=== PATIENT | female | born 1950 | race Caucasian/White ===

== ENCOUNTER → 2016-12-18 15:17 | Day surgery (SDC) | payer MEDICARE, BC ==
--- NOTE | 2016-12-18 15:04 | HP ---
CC: Dr. Padma Garcia DATE OF ADMISSION: 12/18/2016. AGE: 66-year-old female. ADMITTING DIAGNOSES: 1. Calculus right ureter. 2. Right hydronephrosis. PLANNED PROCEDURE: Right ureteroscopy, possible laser and stent insertion. SURGEON: Dr. Ríos. HISTORY OF PRESENT ILLNESS: Padma Pope is a 66-year-old lady with a history of recurrent renal ca lculi who was evaluated on an urgent basis for increasing right- sided abdominal pain and flank pain . She was noted to have a fairly large mm obstructing calculus in the distal right ureter wit h right hydronephrosis and evidence of a complete obstruction. She is now being brought in for righ t ureteroscopy, possible laser and stent insertion. PAST MEDICAL HISTORY: Significant for: 1. Memory impairment. 2. Hypertension. 3. Gastroesophageal reflux. PAST SURGICAL HISTORY: Significant for ureteroscopy for ureteral calculi, hysterectomy, right total knee replacement, and cholecystectomy. MEDICATIONS ON ADMISSION: 1. Xyzal 5 mg daily. 2. Premarin 0.3 mg daily. 3. Aspirin 81 mg daily. 4. Aricept 5 mg daily. 5. Zocor 10 mg daily. 6. Meloxicam prn. ALLERGIES AND INTOLERANCES: MORPHINE. SMOKING HISTORY: She is a nonsmoker. PHYSICAL EXAMINATION GENERAL: Pleasant, uncomfortable-appearing lady. VITAL SIGNS: Blood pressure 148/98, pulse 104 per minute and regular, temperature 97.9, oxygen satu ration 97 percent. CARDIOVASCULAR: Regular rate and rhythm, S1, S2. LUNGS: Clear bilaterally. ABDOMEN: Soft with right flank tenderness. IMPRESSION: Eeakz-wezhn-hcof-old lady with a large obstructing calculus in the right distal ureter . PLAN: Planned procedure is right ureteroscopy, possible laser and stent insertion. [id number]/[facility] #: [id number]
[~2016-12-18 15:17] MED LIST: Buffered Lidocaine 1% SYRIN* 3 ML/SYR SYRINGE INTRADERM ONE; Chloroprocaine 2%* 20 ML VIAL ONE; Dexamethasone IV* 4 MG/ML 1 ML (4 MG) IV SLOW PU ONE; Dexamethasone IV* 4 MG/ML 1 ML (4 MG) ONE; DiMENhydriNATE IV* 50 MG/ML VIAL IV PUSH PRN; Famotidine IV* 10 MG/ML 2 ML (20 mg) IV ONE; Famotidine IV* 10 MG/ML 2 ML (20 mg) ONE; Glycopyrrolate IV* 0.2 MG/ML 1 ML VIAL ONE; Iohexol 180 (CONTRAST) 10 ML SDV IV ONE; Midazolam* 1 MG/ML 5 ML VIAL (5 MG) ONE; Ondansetron INJ* 2 MG/ML VIAL IV PRN; Ondansetron INJ* 2 MG/ML VIAL ONE; cefTRIAXone(*) 2 GM ADDV.VIAL IVPB ONE; fentaNYL* 50 MCG/ML 2 ML VIAL (100 MCG VIAL) IV PRN; fentaNYL* 50 MCG/ML 2 ML VIAL (100 MCG VIAL) ONE; oxyCODONE/Acetamin 5/325 MG* TAB PO PRN
[2016-12-18 20:05] VITALS: BP 133/72
--- NOTE | 2016-12-18 20:09 | RAD ---
INDICATION: Right renal calculus, stent placement. COMPARISON: Comparison is made with a prior KUB series of the same date and a CT of the abdomen and pelvis from June 21, 2016. TECHNIQUE: 8 seconds of intermittent fluoroscopic guidance were provided and 8 spot films of the abdomen were centered on the right side. FINDINGS: There is partial opacification of the right renal collecting system. There is dilatation of the right ureter, renal pelvis and calyces consistent with hydronephrosis. Subsequently there is placement of a double-J stent catheter on the right side which demonstrates normal course. IMPRESSION: INTRAOPERATIVE CONTROL FILMS. CPT II Codes: 6045F
--- NOTE | 2016-12-19 06:44 | OP ---
DATE OF OPERATION: 12/18/16 - [facility] DATE OF : [birth year] - AGE: 66 years, Female. SURGEON: Bautista Ríos MD ANESTHESIOLOGIST: Dr. Mejia. ANESTHESIA: Spinal. PRE-OP DIAGNOSES: 1. Right hydronephrosis and hydroureter. 2. Obstructing calculus, right distal ureter. POST-OP DIAGNOSES: 1. Right hydronephrosis and hydroureter. 2. Obstructing calculus, right distal ureter. OPERATIVE PROCEDURE: Cystoscopy, right retrograde pyelogram, right ureteroscopy , laser lithotripsy of right ureteral calculus, and removal of calculus fragments and right stent insertion. COMPLICATIONS: None. STENTS USED: 7-Niuean stent, right ureter. OPERATIVE FINDINGS: Right hydronephrosis and hydroureter with a fairly large 11 to 12 mm calculus impacted in right distal ureter. POSTOPERATIVE CONDITION: Stable. INDICATIONS: Padma Pope is a 66-year-old lady who was evaluated and noted to have an obstructing right ureteral calculus. PROCEDURE PERFORMED: After induction of spinal anesthesia, the patient was placed in dorsal lithotomy position. Sequential compression devices were in place and functioning. Initial cystoscopy revealed a normal-appearing bladder with clear efflux noted from the left orifice. There was no efflux noted from the right suggesting a complete obstruction. Right retrograde pyelogram revealed right hydronephrosis and a dilated tortuous proximal and mid right ureter. In the distal right ureter, a fairly large calculus was noted to be impacted. Using a 550 micron holmium laser, this was successfully fragmented into multiple fragments, all of which were retrieved. A 7-Niuean stent was introduced and positioned under fluoroscopy with good proximal and distal positioning obtained. The patient tolerated the procedure satisfactorily and was transferred back to recovery area in stable condition. CC: Padma Garcia MD* [id number]/[facility] #: [id number] MTDD
== END | disposition home or self-care (01) ==
LOC: OR 15:17
PROVIDERS: ATTEND Urology
DX: N13.2 Hydronephrosis with renal and ureteral calculous obstruction (principal); I10 Essential (primary) hypertension
CPT/HCPCS: 74420; 82365; 88300; C1876; J0696; J1100; J2250; J2400; J2405; J3010

== ENCOUNTER 2018-08-07 14:05 | Observation (INO) | payer MEDICARE, BC ==
[2018-08-07] MEDS ORDERED: NS 0.9% 1000 ML* 2,000 ML IV ONE (14:28)
--- NOTE | 2018-08-07 14:29 | ED ---
Complex/Multi-Sys Presentation - HPI Summary HPI Summary: Level 5 caveat: Unable to obtain complete HPI due to Alzheimers The pt is a 68 y/o female accompanied by her caregiver [facility] c/o weakness since 1 week ago worsened today. She saw her PCP 1 day ago and got diagnosed with a UTI, dehydration and suspected sepsis. She notes cough while her caregiver reports loss of appetite, N/V/D, increased sleeping, urinary incontinence, speech changes and bilateral pedal edema. 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 Hx From Patient Unobtainable Due To: Other - Alzheimer's Onset/Duration: Lasting Weeks - 1 week, Worse Since - Today Timing: Constant Associated Signs And Symptoms: Positive: Weakness, Cough, Edema - Pedal, Nausea , Vomiting, Diarrhea, Decreased Oral Intake, Other - Incrased sleeping, Urinary incontinence - Allergies/Home Medications Allergies/Adverse Reactions: Allergies Allergy/AdvReac Type Severity Reaction Status Date / Time morphine Allergy Nausea And Verified 08/07/18 14:26 Vomiting Home Medications: Home Medications Losartan Potassium 25 mg PO DAILY 08/07/18 [History Confirmed 08/07/18] cephALEXin [Keflex] 500 mg PO BID 08/07/18 [History Confirmed 08/07/18] PMH/Surg Hx/FS Hx/Imm Hx Previously Healthy: No - Level 5 caveat: Unable to obtain complete Mhx due to Alzheimers Endocrine/Hematology History: Denies: Hx Diabetes Cardiovascular History: Reports: Hx Hypertension - ON MEDS, Other Cardiovascular Problems/Disorders - CAD W/MEDS Denies: Hx Coronary Artery Disease, Hx Pacemaker/ICD Respiratory History: Denies: Hx Asthma History: Reports: Hx Kidney Stones - BILAT. Denies: Hx Renal Disease Musculoskeletal History: Reports: Hx Arthritis - GENERALIZED Denies: Hx Osteoporosis Sensory History: Denies: Hx Contacts or Glasses, Hx Hearing Aid Opthamlomology History: Denies: Hx Contacts or Glasses Neurological History: Reports: Other Neuro Impairments/Disorders - Alzheimer's , memory problems Psychiatric History: Denies: Hx Panic Disorder - Cancer History Cancer Type, Location and Year: None reported Hx Chemotherapy: No Hx Radiation Therapy: No - Surgical History Surgery Procedure, Year, and Place: HYSTERECTOMY. RIGHT KNEE REPLACEMENT. KNEE MENISCUS REPAIR 20 YRS. URETER STENT PLACED A FEW TIMES IN THE PAST Hx Anesthesia Reactions: No Infectious Disease History: No Infectious Disease History: Denies: Traveled Outside the [place] in Last 30 Days - Family History Known Family History: Positive: Cardiac Disease - Social History Occupation: Retired Lives: With Family Alcohol Use: None Substance Use Type: Reports: None Hx Tobacco Use: No Smoking Status (MU): Never Smoked Tobacco Review of Systems - ROS Summary Review of Systems Summary: Level 5 caveat: Unable to obtain complete ROS due to Alzheimers Constitutional: Other - Positive: Increased sleeping, loss of appetite Positive: Cough Positive: Vomiting, Diarrhea, Nausea Positive: incontinence - Urinary Positive: Edema - Bilateral pedal Positive: Weakness All Other Systems Reviewed And Are Negative: No Physical Exam - Summary Physical Exam Summary: Level 5 caveat: Unable to obtain complete PE due to Alzheimer's Appearance: The patient is well-nourished in no acute distress and in no acute pain. Skin: The skin is warm and dry and skin color reflects adequate perfusion. HEENT: The head is normocephalic and atraumatic. The pupils are equal and reactive. The conjunctivae are clear and without drainage. Nares are patent and without drainage. Mouth reveals moist mucous membranes and the throat is without erythema and exudate. The external ears are intact. The ear canals are patent and without drainage. The tympanic membranes are intact. Neck: The neck is supple with full range of motion and non-tender. There are no carotid bruits. There is no neck vein distension. Respiratory: Chest is non-tender. Lungs are clear to auscultation and breath sounds are symmetrical and equal. Cardiovascular: Heart is irregularly irregular. There is no murmur or rub auscultated. There is bilateral pedal edema. Pulses are symmetrical and equal. Abdomen: The abdomen is soft and non-tender. There are normal bowel sounds heard in all four quadrants and there is no organomegaly palpated. Musculoskeletal: There is no back tenderness noted. Extremities are non-tender with full range of motion. There is good capillary refill. There is bilateral pedal edema. No calf tenderness elicited. Neurological: Patient is alert and oriented to person, place and time. The patient has symmetrical motor strength in all four extremities. Cranial nerves are grossly intact. Deep tendon reflexes are symmetrical and equal in all four extremities. Psychiatric: The patient has an appropriate affect and does not exhibit any anxiety or depression. Triage Information Reviewed: Yes Vital Signs On Initial Exam: Initial Vitals Temp Pulse Resp BP Pulse Ox 97.8 F 77 18 134/79 98 08/07/18 14:10 08/07/18 14:10 08/07/18 14:10 08/07/18 14:10 08/07/18 14:10 Vital Signs Reviewed: Yes Completion Of Physical Exam Limited Due To: Other - Alzheimer's Diagnostics - Vital Signs Vital Signs Temp Pulse Resp BP Pulse Ox 08/07/18 14:19 75 134/79 99 08/07/18 14:18 46 97 08/07/18 14:10 97.8 F 77 18 134/79 98 - Laboratory Result Diagrams: 08/07/18 14:54 08/07/18 14:54 Lab Statement: Any lab studies that have been ordered have been reviewed, and results considered in the medical decision making process. - Radiology CXR Radiology Interpretation Completed By: Radiologist - IMPRESSION: Density seen in the bilateral lung bases could be due to atelectasis or infiltrate or simply be the consequence of a poor inspiratory effort on a portable chest x-ray. The ED physician reviewed this radiology report. - CT Abd/Pel CT CT Interpretation Completed By: Radiologist - IMPRESSION: 1. Mildly obstructing 1.1 cm calculus proximal third right ureter. 2. Bilateral nonobstructing renal calculi. 3. Hepatic steatosis and hepatomegaly. Non- associated splenomegaly. 4. Anatomically dilated appendix. The ED physician reviewed this radiology report. Complex Multi-Symp Course/Dx Course Of Treatment: Ms. Pope was brought in by ambulance at the behest of her because she is weak and not taking good care of herself. She has been less talkative today. She's been on a day of Keflex for UTI found at the office of Dr. Garcia yesterday. Labs were drawn at that time and returned today showing acute renal failure with a very high BUN and creatinine. She was nontoxic in appearance on arrival here and vital signs were stable. IV fluid was ordered for her and labs were obtained and sent. She had no leukocytosis and her BUN and creatinine were actually quite a bit improved from yesterday. I spoke with Dr. Mantilla who recommended giving of the fluids in repeating her UA which were still waiting for and see how she does. Her UA did show a continued infection and although she is already been on Keflex for one day she should be improving. Her did not want to take her home as she is too weak for him to take care of therefore Dr. Roldan was contacted and requested a CT scan. CT scan showed an obstructing proximal right ureteral stone of 1.[address] Roldan was informed and is contacting Dr. Barker. She had been given IV Cipro earlier. - Diagnoses Provider Diagnoses: Severe dehydration, UTI (urinary tract infection), Weakness - Physician Notifications Discussed Care Of Patient With: Lynne Roldan - Hospitalist Time Discussed With Above Provider: 17:35 Instructed by Provider To: Admit As Inpatient Discharge - Sign-Out/Discharge Documenting (check all that apply): Patient Departure - Admit - Discharge Plan Condition: Stable Disposition: ADMITTED TO [facility] - Billing Disposition and Condition Condition: STABLE Disposition: Admitted to [facility] - Attestation Statements Document Initiated by Scribe: Yes Documenting Scribe: Ena Hamilton Provider For Whom Catalino is Documenting (Include Credential): Dr. Brian Christie MD Scribe Attestation: Ena Heath , scribed for Dr. Brian Christie MD on 08/07/18 at 2145. Scribe Documentation Reviewed: Yes Provider Attestation: The documentation as recorded by the Ena chandra accurately reflects the service I personally performed and the decisions made by me, Dr. Brian Christie MD
[2018-08-07 15:26] LABS: ABS Basophils 0 10^3/ul (0-0.2); ABS Eosinophils 0.1 10^3/ul (0-0.6); ABS Lymphocytes 0.5 10^3/ul (1.0-4.8); ABS Monocytes 0.8 10^3/ul (0-0.8); ABS Neutrophils 4.6 10^3/ul (1.5-7.7); ABS Nucleated RBC 0 10^3/ul; Eosinophil % 2.3 % (0-6); Hematocrit 39 % (35-47); Lymphocyte % 8.1 % (25-47); Mean Corpuscular HGB Conc 34 g/dl (31-36); Mean Corpuscular Hemoglobin 29 pg (27-31); Mean Corpuscular Volume 87 fL (80-97); Mean Platelet Volume 8.8 fL (7.4-10.4); Nucleated Red Blood Cells % 0.1; Platelet Count 117 10^3/ul (150-450); Red Blood Count 4.45 10^6/ul (4.00-5.40); Red Cell Distribution Width 14 % (10.5-15); White Blood Count 6.1 10^3/ul (3.5-10.8)
--- NOTE | 2018-08-07 15:30 | RAD ---
INDICATION: Weakness COMPARISON: Most recent comparison chest x-rays dated January 03, 2016 TECHNIQUE: Single AP portable view of the chest was obtained. FINDINGS: Image quality is compromised due to the relative inferiority of a portable chest x-ray. The heart and mediastinum exhibit normal size and contour. There is faint density seen at the bilateral lung bases which potentially could be due to poor respiratory effort. More superiorly the lungs are well-aerated. Visualized bones are normal for the patient's age. IMPRESSION: Density seen in the bilateral lung bases could be due to atelectasis or infiltrate or simply be the consequence of a poor inspiratory effort on a portable chest x-ray.
[2018-08-07 15:35] LABS: INR 0.97 (0.77-1.02)
[2018-08-07 15:40] LABS: EGFR Non-African American 21.7 (>60)
[2018-08-07 17:53] LABS: Urine Appearance Cloudy; Urine Blood 2+ (Negative); Urine Color Yellow; Urine Ketones Negative (Negative); Urine Protein 1+(30 mg/dL) (Negative); Urine Red Blood Cell 3+(>10/hpf) (Absent); Urine Specific Gravity 1.013 (1.010-1.030); Urine Urobilinogen Negative (Negative); Urine White Blood Cell 3+(>20/hpf) (Absent)
[2018-08-07] MEDS ORDERED: Ciprofloxacin 400MG IVPREMIX(* 400 MG/200 ML BAG IVPB ONE (19:39)
[2018-08-07] MEDS ORDERED: Acetaminophen TAB* 325 MG PO PRN (20:09)
[2018-08-07] MEDS ORDERED: NS 0.9% 1000 ML* 1,000 ML IV SCH (20:15)
[2018-08-07] MEDS ORDERED: NAMENDA PO SCH (21:00)
--- NOTE | 2018-08-07 21:16 | RAD ---
EXAM: CT Abdomen and Pelvis Without Intravenous Contrast EXAM DATE/TIME: 08/07/2018 8:39 PM CLINICAL HISTORY: 68 years old, female; Signs and symptoms; Other: Obstruction TECHNIQUE: Axial computed tomography images of the abdomen and pelvis without intravenous contrast. All CT scans at this facility use at least one of these dose optimization techniques: automated exposure control; mA and/or kV adjustment per patient size (includes targeted exams where dose is matched to clinical indication); or iterative reconstruction. Coronal and sagittal reformatted images were created and reviewed. COMPARISON: A/P WO CT ABD/PEL W/O 06/21/2016 6:44 PM FINDINGS: Lower thorax: No acute findings. ABDOMEN: Liver: Diffuse low-attenuation of the liver parenchyma with sparing along the gallbladder fossa. Associated enlargement measuring 22 cm. Gallbladder and bile ducts: Surgically absent gallbladder. Pancreas: Normal. No ductal dilation. Spleen: Enlarged spleen measuring 522 cc. Adrenals: Normal. No mass. Kidneys and ureters: Enlargement of the right kidney with mild pelvicaliureterectasis which terminates at a 1.1 cm calculus proximal third right ureter (series 601, image 52). Additional bilateral nonobstructing renal calculi including on the left within the midpole measuring 0.6 and 0.5 cm and on the right within the lower pole measuring 0.3 cm. Mild right perinephric and proximal periureteral stranding. No left pelvocaliectasis. Stomach and bowel: Incompletely distended grossly normal stomach. Normal caliber small bowel. No colonic masses or segmental wall thickening. Appendix: Dilated appendix measuring up to 1.2 cm with no wall thickening or appendiceal stranding. Appendix is similar in caliber compared to prior study. PELVIS: Bladder: Thin-walled bladder with no focal nodularity, perivesicular stranding, or calcifications. Reproductive: Uterus and ovaries are normal. ABDOMEN and PELVIS: Intraperitoneal space: Normal. No free air. No significant fluid collection. Bones/joints: The spine demonstrates mild degenerative changes at multiple levels. Mild bilateral hip primary osteoarthritis. No fractures. No suspicious bone lesions. Soft tissues: Small fat-containing indirect bilateral inguinal hernias. No stranding. Vasculature: There is mild atherosclerotic calcification of the coronary arteries. The aorta demonstrates severe atherosclerotic calcification and ectasia. Lymph nodes: Normal. No enlarged lymph nodes. IMPRESSION: 1. Mildly obstructing 1.1 cm calculus proximal third right ureter. 2. Bilateral nonobstructing renal calculi. 3. Hepatic steatosis and hepatomegaly. Non-associated splenomegaly. 4. Anatomically dilated appendix. To contact [facility] with a general question: Operations Center - [phone] For direct physician to physician contact: Physician Hotline - [phone] [facility] ([facility] Facility ID #[id number])
[2018-08-07] MEDS ORDERED: cefTRIAXone(*) 1 GM in NS 0.9% 50 ML* 50 ML IVPB SCH (21:30)
[2018-08-07] MEDS ORDERED: cefTRIAXone(*) 2 GM in NS 0.9% 100 ML* 100 ML IVPB ONE (21:51)
[2018-08-07] MEDS ORDERED: Gentamicin ADULT (*) 160 MG in NS 0.9% 100 ML* 100 ML IVPB ONE (22:00)
[2018-08-07] MEDS: Heparin VIAL(*) 5000 UNITS/ML VIAL (FIVE THOUSAND) SUBCUT SCH (22:06)
--- NOTE | 2018-08-07 23:16 | HP ---
ADDENDUM NOW INCLUDED ON THIS REPORT CC: Dr. Padma Garcia.* HISTORY AND PHYSICAL: DATE OF ADMISSION: 08/07/18 PRIMARY CARE PROVIDER: Dr. Padma Garcia. ATTENDING PHYSICIAN WHILE IN THE HOSPITAL: Lynne Roldan MD * (dictated by Jayshree Casanova NP). CHIEF COMPLAINT: 1. Increased confusion. 2. UTI. HISTORY OF PRESENT ILLNESS: Ms. Pope is a 68-year-old female who has past medical history significant for Alzheimer's disease, hypertension, hyperlipidemia, history of kidney stones who presented to the emergency room today with her for complaints of increased confusion and fatigue. The reports that the patient was seen at her primary care doctor's office yesterday, had routine blood work done, which they found her to have an elevated BUN and creatinine. On 08/06/18 her BUN and creatinine were 98 and 3.5 , today on the day of admission her BUN is 74 and creatinine is 2.23. She was started on Keflex antibiotics for urinary tract infection at her doctor's office. The does report that she has had a low grade fever and intermittent chills. The patient denies any abdominal pain. She denies any chest pain or shortness of breath. Denies any cough, congestion, or hemoptysis. She does report some diarrhea. The does not report any gross hematuria. He does report increased urinary frequency increased confusion and incontinence. There has been no focal weakness, no trouble swallowing, no arthralgias or myalgias. No rashes or lesions. Given her increased confusion and UTI, we were asked to see and evaluate her for admission. While in the emergency room, the patient had routine lab work drawn. Her BUN and creatinine today on the day of admission are 7.4, and 2.23, which markedly has improved. Her C-reactive protein yesterday was 201.72, today it is 114.81. She did receive IV normal saline during her time in the emergency urgency room. The does report that her mentation has improved since receiving the IV fluids. PAST MEDICAL HISTORY: Significant for: 1. Alzheimer's x15 years. 2. Kidney stones. 3. Hypertension. 4. Hyperlipidemia. PAST SURGICAL HISTORY: 1. Knee replacement. 2. Cholecystectomy. 3. Hysterectomy. ALLERGIES: She has allergy to morphine. FAMILY HISTORY: No reported history of coronary artery disease, diabetes or cancer within the family. SOCIAL HISTORY: reports no tobacco, alcohol, or illicit drug use. She is . Surrogate decision maker in the event she is unable to make her own decisions is her , Renetta Pope, his phone number is [phone]. She has a full code. REVIEW OF SYSTEMS: There has been no documented fever. No weight loss. She denies any chest pain. No cough hemoptysis or shortness of breath. Denies any nausea, vomiting, does report diarrhea. Denies any abdominal pain. Denies any gross hematuria. Does report increased urinary frequency, confusion, and incontinence. Denies any focal weakness or sensory loss. Denies any visual complaints. Denies any dysphagia, arthralgias or myalgias. Denies any rashes or lesions. Denies any psychosis for anxiety. There has been report of increased confusion and increased fatigue. PHYSICAL EXAMINATION GENERAL: At this time, Ms. Pope is alert, resting on the stretcher in the emergency room. Her face is flushed. She is in no acute distress. VITAL SIGNS: Temperature was 97.8, heart rate was 83, respirations 24, O2 saturation 96%, blood pressure 138/73. HEENT: Pupils are equal and reactive to light. EOMs are intact. Sclerae anicteric, not pale. Oral mucosa appears to be moist. NECK: Supple. LUNGS: Clear to auscultation bilaterally. No wheezes, rales or rhonchi. HEART: Sounds S1 and S2. Regular rate and rhythm. No murmurs, rubs or gallops. ABDOMEN: Soft, flat and nontender. Bowel sounds are present x4. She does have positive right CVA tenderness with palpation. EXTREMITIES: Pulses are +2 bilaterally. She is able to move all 4 extremities with 5/5 strength. NEUROLOGIC: She is awake. She is confused to place and time. She is oriented to name. Her speech is clear. There is no gross focal deficits noted. SKIN: Intact. DIAGNOSTIC STUDIES/LAB DATA: WBCs were 6.1, RBCs 4.45, hemoglobin was 13.0, hematocrit was 39, platelet count was 117,000. INR was 0.97. Chemistry: Sodium 135, potassium 3.5, chloride 98, carbon dioxide was 28, anion gap was 9, BUN was 74, creatinine 2.23, glucose 103, lactic acid was 0.9. ASTs were 41, C- reactive 114.81. Urine color is yellow, cloudy, pH was 5, specific gravity 1.013, urine protein was 1+, urine ketones were negative. Urine blood was 2+. Urine nitrites were negative. Bilirubin was negative. Urobilinogen was negative. Urine leukocyte esterase was 3+, wbc's 3+, rbc's were 3+. Urine squamous epithelial cells were present. Urine bacteria 1+, granular casts are present. Urine yeast is present. Urine glucose was negative. Chest x-ray: Densities were seen in bilateral lung bases, could be due to atelectasis or infiltrate or simply be the consequence of poor inspiration effort on the portable chest. CT of the abdomen is currently pending. ASSESSMENT AND PLAN: Ms. Pope is a 68-year-old female who presented to the emergency room today with increased confusion, fatigue, and urinary tract infection symptoms. We were asked to see and evaluate her for admission due to weakness and elevated BUN and creatinine. She will be admitted under observation for: 1. Urinary tract infection. The patient was seen and evaluated by her primary care provider yesterday. She was diagnosed with urinary tract infection and started on Keflex. Initially, her blood work yesterday BUN and creatinine were 98 and 3.50, today she has 74 and 2.23. Her C-reactive protein was also elevated at 201 and is now down to 114. I will place her on ceftriaxone and CT of the abdomen pelvis is currently pending, as she does have a history of kidney stones to rule out obstructing stone. We will repeat a CBC and BMP in the a.m. I will give her gentle hydration of normal saline at 75 cc per hour x1 L. Her urine culture from yesterday is positive for E. coli greater than 100 ,000. 2. Acute kidney injury. I suspect this could be related to her urinary tract infection. This also could be related to obstructive kidney stone. She has a CT of the abdomen and pelvis that is currently pending. At this time, if she does have obstructing stones, we will consult Urology. We will avoid nephrotoxic medications during this hospitalization as her BUN and creatinine are significantly elevated. 3. Hypertension. She will continue on losartan as previously prescribed. 4. Alzheimer's dementia. She will continue on Namenda and donepezil as previously prescribed. 5. Hyperlipidemia. She will continue on simvastatin as previously prescribed. 6. DVT prophylaxis. I will place her on heparin subcu. 7. Fluids, electrolytes, and nutrition. She can have heart healthy, caffeine okay diet. 8. Code status. She is a full code. TIME SPENT: Time spent on this admission was approximately 60 minutes, greater than half the time was spent [id number] with the patient obtaining my history and physical, the other half time was spent going over my plan of care and implementing my plan of care. I have discussed this with my attending, Dr. Lynne Roldan she is in agreement with my plan. ADDENDUM: The patient had a CT of the abdomen and pelvis, found a 1.1 cm right renal calculi obstructing stone. I did speak to Dr. Barker, who has recommended the patient have 2 g of ceftriaxone IV and gentamicin 160 mg IV, continue with IV hydration. The patient should be n.p.o. after midnight. He will see the patient in the morning and the patient will have a stent placement in the a.m. If the patient develops a fever or hypotension overnight, Dr. Barker is to be called immediately. JAYSHREE CASANOVA, DAYNA [id number]/CPS #: [id number]/CPS #: [id number] AMY
--- NOTE | 2018-08-08 00:30 | HP ---
HISTORY AND PHYSICAL: ADDENDUM: The patient had a CT of the abdomen and pelvis, found a 1.1 cm right renal calculi obstructing stone. I did speak to Dr. Barker, who has recommended the patient have 2 g of ceftriaxone IV and gentamicin 160 mg IV, continue with IV hydration. The patient should be n.p.o. after midnight. He will see the patient in the morning and the patient will have a stent placement in the a.m. If the patient develops a fever or hypotension overnight, Dr. Barker is to be called immediately. RE REIS, HONEY BLENDER [id number]/[facility] #: [id number] AMY
[2018-08-08] MEDS: Heparin VIAL(*) 5000 UNITS/ML VIAL (FIVE THOUSAND) SUBCUT SCH ×3 (05:34→22:53)
[2018-08-08 06:55] LABS: ABS Basophils 0 10^3/ul (0-0.2); ABS Eosinophils 0.1 10^3/ul (0-0.6); ABS Lymphocytes 0.7 10^3/ul (1.0-4.8); ABS Monocytes 0.9 10^3/ul (0-0.8); ABS Neutrophils 4.2 10^3/ul (1.5-7.7); ABS Nucleated RBC 0 10^3/ul; Eosinophil % 1.2 % (0-6); Hematocrit 34 % (35-47); Hemoglobin 11.3 g/dl (12.0-16.0); Lymphocyte % 11.2 % (25-47); Mean Corpuscular HGB Conc 34 g/dl (31-36); Mean Corpuscular Hemoglobin 29 pg (27-31); Mean Corpuscular Volume 86 fL (80-97); Mean Platelet Volume 8.3 fL (7.4-10.4); Nucleated Red Blood Cells % 0; Platelet Count 104 10^3/ul (150-450); Red Cell Distribution Width 14 % (10.5-15); White Blood Count 5.8 10^3/ul (3.5-10.8)
[2018-08-08 07:13] LABS: EGFR Non-African American 32.6 (>60)
[2018-08-08] MEDS ORDERED: Iohexol 180 (CONTRAST) 10 ML SDV IV ONE (08:03)
[2018-08-08] MEDS ORDERED: Naloxone* 0.4 MG/ML 1 ML VIAL IV PRN (08:09)
[2018-08-08] MEDS ORDERED: fentaNYL* 50 MCG/ML 2 ML VIAL (100 MCG VIAL) IV PRN (08:09)
[2018-08-08] MEDS ORDERED: fentaNYL* 50 MCG/ML 2 ML VIAL (100 MCG VIAL) ONE (08:35)
[2018-08-08] MEDS ORDERED: Lidocaine 2% PF * 5 ML VIAL ONE (08:35)
[2018-08-08] MEDS ORDERED: Propofol* 10 MG/ML 20 ML BTL IV PUSH ONE (08:35)
--- NOTE | 2018-08-08 10:30 | RAD ---
CPT II Codes: G9500 INDICATION: Right-sided renal calculus TECHNIQUE: Intraoperative fluoroscopy was provided during retrograde nephrostogram and right ureteral stent insertion. FINDINGS: 6 spot films depict a retrograde nephrostogram demonstrating moderate hydronephrosis with anatomic placement of a right ureteral stent. Fluoroscopy time: 30 seconds IMPRESSION: As above.
[2018-08-08] MEDS: Losartan TAB* 25 MG PO SCH (10:33)
[2018-08-08] MEDS: cefTRIAXone(*) 1 GM in NS 0.9% 50 ML* 50 ML IVPB SCH ×2 (10:43→22:55)
[2018-08-08] MEDS: NS 0.9% 1000 ML* 1,000 ML IV SCH ×2 (14:25→22:53)
--- NOTE | 2018-08-08 15:45 | PN ---
Subjective Date of Service: 08/08/18 Interval History: Ms. Pope is feeling better today. She denies any pain. Her family is at bedside and reports she looks much better than yesterday. She denies any urinary symptoms such as dysuria, hesitancy, or increased frequency. Has urinated without difficulty since stent placement this morning. She denies CP, SOB, N/V/D, dizziness. Has been up ambulating in the room. Family History: Unchanged from Admission Social History: Unchanged from Admission Past Medical History: Unchanged from Admission Objective Active Medications: Acetaminophen (Tylenol Tab*) 650 mg PO Q4H PRN Amlodipine Besylate (Norvasc Tab*) 5 mg PO QPM [facility] Donepezil HCl (Aricept Tab*) 10 mg PO QPM [facility] Heparin Sodium (Porcine) (Heparin Vial(*)) 5,000 units SUBCUT Q8HR [facility] Ceftriaxone Sodium 1 gm/ (Sodium Chloride) 50 mls @ 200 mls/hr IVPB Q12H [facility] Sodium Chloride (Ns 0.9% 1000 Ml*) 1,000 mls @ 125 mls/hr IV PER RATE [facility] Losartan Potassium (Cozaar Tab*) 25 mg PO DAILY [facility] Simvastatin (Zocor(Nf)) 10 mg PO QPM [facility] Vital Signs - 8 hr 08/08/18 08/08/18 08/08/18 07:52 08:00 09:16 Temperature 98.9 F 97.3 F Pulse Rate 83 71 Respiratory 19 20 Rate Blood Pressure 140/67 (mmHg) O2 Sat by Pulse 95 95 96 Oximetry 08/08/18 08/08/18 08/08/18 09:17 09:20 09:25 Temperature Pulse Rate 70 73 74 Respiratory 18 18 Rate Blood Pressure 115/64 129/76 122/79 (mmHg) O2 Sat by Pulse 98 97 98 Oximetry 08/08/18 08/08/18 09:30 09:45 Temperature Pulse Rate 68 69 Respiratory 18 Rate Blood Pressure 130/77 152/88 (mmHg) O2 Sat by Pulse 93 99 Oximetry Oxygen Devices in Use Now: None Appearance: Elderly woman sitting in chair in NAD Eyes: No Scleral Icterus Ears/Nose/Mouth/Throat: Mucous Membranes Moist Neck: NL Appearance and Movements; NL JVP Respiratory: Symmetrical Chest Expansion and Respiratory Effort, Clear to Auscultation Cardiovascular: NL Sounds; No Murmurs; No JVD, RRR Abdominal: NL Sounds; No Tenderness; No Distention Extremities: No Clubbing, Cyanosis, - - +1 pitting edema to BLE Skin: No Rash or Ulcers Neurological: - - Oriented to self only Lines/Tubes/Other Access: Clean, Dry and Intact Peripheral IV Nutrition: Taking PO's Result Diagrams: 08/08/18 06:31 08/08/18 06:31 Assess/Plan/Problems-Billing Assessment: Ms. Pope is a 68yo with PMH of Alzheimer's, HTN, and HLD who presented to the ER on 08/07/18 with c/o increased confusion per her and was found to have a UTI with EDUARDO. - Patient Problems (1) Pyelonephritis due to Escherichia coli Current Visit: Yes Status: Acute Priority: High Code(s): N12 - TUBULO- INTERSTITIAL NEPHRITIS, NOT SPCF ACUTE OR CHRONIC; B96.20 - UNSP ESCHERICHIA COLI THE CAUSE OF DISEASES CLASSD [facility] SNOMED Code(s): 58420700 Comment: - Right sided CVA tenderness on exam - CT shows mild right perinephric and proximal periureteral stranding - Urine culture from 08/06/18 shows e. coli; pansensitive except to tetracycline - Continue ceftriaxone (2) Calculus of right kidney Current Visit: Yes Status: Acute Priority: High Code(s): N20.0 - CALCULUS OF KIDNEY SNOMED Code(s): 69999790 Comment: - CT shows mildly obstructing 1.1cm calculus, right side - S/p stent placement this morning by Dr. Barker (3) Bacteremia due to Escherichia coli Current Visit: Yes Status: Acute Priority: High Code(s): R78.81 - BACTEREMIA SNOMED Code(s): 536752731781 Comment: - In 1/4 bottles from 08/07; seems unlikely to be contamination as she did also grow e. coli in her urine culture - Continue ceftriaxone (4) Acute kidney injury Current Visit: Yes Status: Acute Priority: High Code(s): N17.9 - ACUTE KIDNEY FAILURE, UNSPECIFIED SNOMED Code(s): 02493172 Comment: - Combination of prerenal 2/2 hypovolemia and postrenal 2/2 mildly obstructing right calculus - On 08/06/18 creatinine up to 3.5; has been trending down with IVF; now at 1.5 - Baseline creatinine is 0.8 - Continue NS overnight (5) Alzheimers disease Current Visit: Yes Status: Chronic Priority: High Code(s): G30.9 - ALZHEIMER'S DISEASE, UNSPECIFIED; F02.80 - DEMENTIA IN OTH DISEASES CLASSD ELSWHR W/O BEHAVRL DISTURB SNOMED Code(s): 14923073 Comment: - With increased confusion in the setting of acute infection; now back at baseline mentation per family - Hold namenda - Continue aricept (6) Hypertension Current Visit: No Status: Acute Code(s): I10 - ESSENTIAL (PRIMARY) HYPERTENSION SNOMED Code(s): 52265213 Comment: - Normotensive with SBP 130-140 - Continue amlodipine (7) Hyperlipemia Current Visit: Yes Status: Chronic Priority: Medium Code(s): E78.5 - HYPERLIPIDEMIA, UNSPECIFIED SNOMED Code(s): 97601433 Comment: - Continue simvastatin (8) Full code status Current Visit: Yes Status: Acute Priority: High Code(s): Z78.9 - OTHER SPECIFIED HEALTH STATUS SNOMED Code(s): 544455013 (9) DVT prophylaxis Current Visit: Yes Status: Acute Priority: High Code(s): SIX1193 - SNOMED Code(s): 966735211 Comment: - Heparin SQ Status and Disposition: Observation for continued IVF and abx. Anticipate d/c home with family when medically stable, likely tomorrow.
[2018-08-08] MEDS ORDERED: Donepezil TAB* 5 MG PO SCH (18:00)
[2018-08-08] MEDS ORDERED: amLODIPine TAB* 5 MG PO SCH (18:00)
[2018-08-08] MEDS ORDERED: CMC: Simvastatin TAB(NF) 10 MG TAB PO SCH (18:00)
--- NOTE | 2018-08-08 20:38 | OP ---
CC: Dr. Padma Garcia * DATE OF OPERATION: 08/08/18 - ROOM #417 DATE OF : 46 SURGEON: Dr. Barker. ANESTHESIOLOGIST: Dr. Diaz Crow. ANESTHESIA: IV sedation with MAC. PRE-OP DIAGNOSES: 1. Proximal right ureteral calculus (1 cm). 2. Right hydronephrosis due to above. 3. Urinary tract infection. 4. Bilateral non-obstructing small renal calculi. POST-OP DIAGNOSES: 1. Proximal right ureteral calculus (1 cm). 2. Right hydronephrosis due to above. 3. Urinary tract infection. 4. Bilateral nonobstructing small renal calculi. OPERATIVE PROCEDURES: 1. Cystoscopy. 2. Right retrograde pyelography. 3. Placement of right ureteral stent (6 Peruvian). INDICATIONS FOR PROCEDURE: Mrs. Pope is a 68-year-old white female who is followed in our office by Dr. Ríos and who is known to have recurrent renal calculi and had required a right uteroscopy and laser lithotripsy for a distal right ureteral calculus about 1-1/2 years ago. The patient presented yesterday evening to the emergency room with symptoms of right renal colic. Her urine was positive for infection, but she was not febrile. She did not have an elevated white count. Her serum creatinine was elevated at 2.3. A noncontrast CT of the abdomen and pelvis showed small bilateral nonobstructing renal calculi, right hydronephrosis and proximal hydroureter, with stranding around the right kidney and a 1-cm calculus just distal to the ureteropelvic junction. Patient was admitted for hydration, pain control, and was started on ceftriaxone (2 g IV) and was given 1 dose of gentamicin (160 mg IV). This morning, she is still afebrile. She is feeling much better. Urine culture done 2 days prior to her admission grew E. coli, sensitive to all antibiotics except tetracycline. Because of the above history and the obstructing calculus and the presence of the urinary tract infection, the patient is taken to the operating room on a semi- urgent basis for stent placement. PATHOLOGY AT CYSTOSCOPY: The bladder mucosa showed slight hyperemia consistent with cystitis. The ureteral orifices looked normal. There was a single orthotopic orifice on each side. Upon right retrograde pyelography, there was a tortuosity and dilatation of the proximal right ureter with moderate right hydronephrosis. The kidney looked ptotic and at one point, I was concerned that she might have a double collecting system and double ureters. Careful reevaluation of the trigone showed a single orthotopic Rt ureteral orifice. DESCRIPTION OF PROCEDURE: With the patient in the dorsal lithotomy position under intravenous sedation and anesthesia monitoring, cystoscopy was performed. The bladder was carefully inspected and the above findings were noted. A flexible-tip hybrid guidewire was introduced into the right orifice and there was some difficulty negotiating the tortuosity up the ureter. Retrograde pyelography was then performed showing the tortuosity of the ureter and the hydronephrosis. The calculus was not clearly seen and the proximal ureter seems to be medial, overlying the lumbar vertebrae. A glidewire was then introduced into the right ureter and after several attempts was successfully positioned in the renal pelvis. The tortuosity of the ureter was straightened. A 6-Peruvian stent was then placed with the proximal end coiling in the renal pelvis and the distal end coiling inside the bladder. There was good drainage of contrast from the kidney and no extravasation. The patient tolerated the procedure well and left the operating room in good condition. The plan is to observe the patient for another 24 hours for possible pyelonephritis. A KUB will be obtained to determine the position of the stone. If she remains afebrile, she can be discharged home tomorrow on a 10 days course of Bactrim. She is to follow in our office for definitive treatment of the stone. [id number]/CPS #: [id number] MTDD
[2018-08-09] MEDS ORDERED: hydrALAZINE IV* 20 MG/ML VIAL IV SLOW PU ONE (03:35)
[2018-08-09] MEDS: Heparin VIAL(*) 5000 UNITS/ML VIAL (FIVE THOUSAND) SUBCUT SCH ×2 (05:30→15:32)
[2018-08-09 07:05] LABS: ABS Basophils 0 10^3/ul (0-0.2); ABS Eosinophils 0 10^3/ul (0-0.6); ABS Lymphocytes 0.8 10^3/ul (1.0-4.8); ABS Monocytes 0.7 10^3/ul (0-0.8); ABS Neutrophils 3.4 10^3/ul (1.5-7.7); ABS Nucleated RBC 0 10^3/ul; Hematocrit 35 % (35-47); Hemoglobin 11.8 g/dl (12.0-16.0); Lymphocyte % 15.8 % (25-47); Mean Corpuscular HGB Conc 34 g/dl (31-36); Mean Corpuscular Hemoglobin 29 pg (27-31); Mean Corpuscular Volume 86 fL (80-97); Mean Platelet Volume 8.2 fL (7.4-10.4); Nucleated Red Blood Cells % 0; Platelet Count 114 10^3/ul (150-450); Red Blood Count 4.11 10^6/ul (4.00-5.40); Red Cell Distribution Width 14 % (10.5-15); White Blood Count 4.9 10^3/ul (3.5-10.8)
[2018-08-09 07:23] LABS: EGFR Non-African American 46.6 (>60)
[2018-08-09] MEDS: NS 0.9% 1000 ML* 1,000 ML IV SCH (08:28)
[2018-08-09] MEDS: Losartan TAB* 25 MG PO SCH (08:28)
[2018-08-09] MEDS: cefTRIAXone(*) 1 GM in NS 0.9% 50 ML* 50 ML IVPB SCH (08:30)
[2018-08-09 13:01] VITALS: BP 127/72
[2018-08-09] MEDS ORDERED: Potassium Chlor TAB* 20 MEQ TAB.ER PO ONE (15:11)
--- NOTE | 2018-08-10 15:05 | DS ---
CC: Dr. Pamda Garcia; Dr. Barker; Dr. Ríos * DISCHARGE SUMMARY: DATE OF ADMISSION: 08/07/18 DATE OF DISCHARGE: 08/09/18 PRIMARY CARE PROVIDER: Dr. Padma Garcia. ATTENDING PHYSICIAN: Dr. Stanford Hughes * (dictated by Zulma Arcos NP). PRIMARY DIAGNOSES: 1. Pyelonephritis due to E. coli. 2. Calculus of right kidney. 3. Bacteremia due to E. coli. 4. Acute kidney injury. SECONDARY DIAGNOSES: 1. Alzheimer's disease. 2. Hypertension. 3. Hyperlipidemia. STUDIES WHILE IN THE HOSPITAL: 1. Chest x-ray on 08/07/18 reads as density seen in bilateral lung bases could be due to atelectasis or infiltrate or simply be the consequence of poor inspiratory effort on portable chest x-ray. 2. Abdomen and pelvis CT on 08/07/18 reads as mildly obstructing 1.1 cm calculus proximal third right ureter, bilateral nonobstructing renal calculi, hepatic steatosis and hepatomegaly, nonassociated splenomegaly, anatomically dilated appendix, mild right perinephric and proximal periureteral stranding. HISTORY OF PRESENT ILLNESS AND HOSPITAL COURSE: Ms. Pope is a 68-year-old female with past medical history of Alzheimer's, hypertension, and hyperlipidemia who presented to the emergency room on 08/07/18 with her family and complaints of increased confusion. Please see the history and physical by Jayshree Casanova NP, for complete summary of the events leading up to this hospitalization, but in short, the patient had been seen at her primary care provider's office the day prior and was started on Keflex for her urinary tract infection; however, the patient became increasingly confused and fatigued at home. She had a low-grade fever and intermittent chills. In the emergency room , the patient was noted to have a creatinine of 2.23, a CRP of 114 and a urinalysis indicative of a urinary tract infection. She was admitted by the hospitalist service. The admitting nurse practitioner spoke with Dr. Barker who recommended ceftriaxone and gentamicin. He noted that he would see the patient in the morning to place a stent. The patient had an uneventful night that night. She was taken to the operating room in the morning and had a right ureteral stent placed. She tolerated the procedure well. She had no further fevers during this hospitalization. White count has remained stable. She had 1 /4 blood culture bottles grow E. coli. Additionally, her urine culture from 11/22 was significant for E. coli. The acute kidney injury resolved with IV fluids and as of the day of discharge, the patient's creatinine is down to 1.15. She has been urinating without difficulty. In his operative report, Dr. Barker noted that the patient should be observed for another 24 hours and would have a KUB in the morning as long as she remained afebrile, he recommended that she be discharged on a 10-day course of Bactrim and followup in the office for definitive treatment of the stone. As of the day of discharge , the patient reports feeling well. She has no urinary complaints. Her family feels as though that her mentation is at baseline. Ms. Pope is stable for discharge today. Vital signs are as follows: Temp 98.4, heart rate 80, respiratory rate 18, oxygen saturation 97% on room air, blood pressure 127/72. DISCHARGE MEDICATIONS: New home medications: 1. Bactrim DS 800/160 one tab p.o. b.i.d. for 10 days. Continued home medications: 1. Amlodipine 5 mg p.o. daily. 2. Aricept 10 mg p.o. daily. 3. Premarin 0.3 mg p.o. daily. 4. Losartan 25 mg p.o. daily. 5. Meloxicam 7.5 mg p.o. b.i.d. 6. Namenda 10 mg p.o. daily. 7. Simvastatin 10 mg p.o. daily. DISCHARGE PLAN: Ms. Pope will be discharged back home with her family. Activity will be as tolerated. Diet will be heart healthy. Medications are noted above. The patient has been placed on a 10-day course of Bactrim per Dr. Barker's recommendations. I will note that she has a creatinine clearance of 76 and does not require renal dosing, so she has been placed on double strength. She may resume her other home medications. She will need to follow up with Dr. Barker's office as noted above for definitive treatment of the stone. She should follow up with her primary care provider in 4 to 7 days. She and her family have been instructed to return to the emergency room or nearest hospital for any worsening of symptoms, shortness of breath, lightheadedness, dizziness, chest discomfort, high fevers, chills, night sweats , loss of consciousness or any other worrisome signs or symptoms. This is a summarized report of a complex medical history and hospital stay. For further details, please see the entire medical record. TIME SPENT: Approximately 40 minutes were spent on this discharge, greater than half of that time spent [id number] with the patient and her family discussing discharge plans and instructions. ZULMA ARCOS OBSTETRICAL TECH [id number]/CPS #: [id number] AMY
== END 2018-08-09 15:52 | disposition home or self-care (01) ==
LOC: ED 14:05 → MED 21:12
PROVIDERS: ADMIT Internal Medicine; ATTEND Internal Medicine
DX: N12 Tubulo-interstitial nephritis, not specified as acute or chronic (principal); N20.0 Calculus of kidney; N13.30 Unspecified hydronephrosis; A49.8 Other bacterial infections of unspecified site; R78.81 Bacteremia; N17.9 Acute kidney failure, unspecified; G30.9 Alzheimer's disease, unspecified; F02.80 Dementia in other diseases classified elsewhere, unspecified severity, without behavioral disturbance, psychotic disturbance, mood disturbance, and anxiety; I10 Essential (primary) hypertension; E78.5 Hyperlipidemia, unspecified; N39.0 Urinary tract infection, site not specified
CPT/HCPCS: 36415; 71045; 74018; 74176; 74420; 80048; 80053; 81003; 81015; 83605; 84484; 85025; 85610; 85730; 86140; 87040; 87077; 87086; 87186; 87205; 96361; 96365; 96366; 96375; 99283; A9270-GY; G0378; G8978-GP-CI; G8979-GP-CI; J0360; J0696; J1580; J1644; J2704; J3010

== ENCOUNTER → 2018-08-23 10:16 | Day surgery (SDC) | payer MEDICARE, BC ==
[~2018-08-23 10:16] MED LIST changes: +Acetaminophen TAB* 325 MG PO PRN; +Buffered Lidocaine 0.9% SYRIN* 5 ML/SYR SYRINGE INTRADERM ONE; -Buffered Lidocaine 1% SYRIN* 3 ML/SYR SYRINGE INTRADERM ONE; -Chloroprocaine 2%* 20 ML VIAL ONE; -Dexamethasone IV* 4 MG/ML 1 ML (4 MG) IV SLOW PU ONE; -Dexamethasone IV* 4 MG/ML 1 ML (4 MG) ONE; -Famotidine IV* 10 MG/ML 2 ML (20 mg) IV ONE; -Glycopyrrolate IV* 0.2 MG/ML 1 ML VIAL ONE; +HYDROcodone/ACETAMIN 5-325 MG* 1 TAB ONE; +HYDROcodone/ACETAMIN 5-325 MG* 1 TAB PO PRN; -Iohexol 180 (CONTRAST) 10 ML SDV IV ONE; +Lidocaine 2% PF * 5 ML VIAL ONE; -Midazolam* 1 MG/ML 5 ML VIAL (5 MG) ONE; +Naloxone* 0.4 MG/ML 1 ML VIAL IV PRN; -Ondansetron INJ* 2 MG/ML VIAL IV PRN; +PROCHLORPERAZINE INJ 5 MG/ML 2 ML VIAL IV PRN; +Propofol* 10 MG/ML 20 ML BTL IV PUSH ONE; +diPHENhydraMINE IV* 50 MG/ML 1 ml VIAL (BENADRYL) IV PRN; -oxyCODONE/Acetamin 5/325 MG* TAB PO PRN
[2018-08-23 16:30] VITALS: BP 149/79
--- NOTE | 2018-08-24 09:44 | OP ---
CC: Dr. Padma Garcia; Dr. Ríos OPERATIVE SUMMARY: DATE OF OPERATION: 08/23/18 DATE OF : 46 SURGEON: Dr. Ríos. ANESTHESIOLOGIST: Dr. Rasheed. ANESTHESIA: General. PRE-OP DIAGNOSIS: Calculus, right proximal ureter. POST-OP DIAGNOSIS: Calculus, right proximal ureter. OPERATIVE PROCEDURE: Shock-wave lithotripsy of calculus, right ureter. INDICATIONS: Padma Pope is a 68-year-old lady who had undergone urgent right stent insertion for a n obstructing calculus in the right proximal ureter. She is now being brought in for lithotripsy for definitive treatment of the calculus. COMPLICATIONS: None. POSTOPERATIVE CONDITION: Stable. DESCRIPTION OF PROCEDURE: After induction of general anesthesia, the patient was placed on the litho tripsy table in supine position. The calculus, which was in the proximal ureter adjacent to the sten t, was localized using fluoroscopy. Shock-wave lithotripsy was commenced at a rate of 90 shocks per minute. Periodic imaging revealed adequate localization and a total of 2500 shocks were delivered. The patient tolerated the procedure satisfactorily and was transferred back to the recovery area in s table condition. [id number]/[facility] #: [id number]
== END | disposition home or self-care (01) ==
LOC: OR 10:16
PROVIDERS: ATTEND Urology
DX: N20.1 Calculus of ureter (principal); I10 Essential (primary) hypertension; K21.9 Gastro-esophageal reflux disease without esophagitis; E78.5 Hyperlipidemia, unspecified; G30.9 Alzheimer's disease, unspecified; F02.80 Dementia in other diseases classified elsewhere, unspecified severity, without behavioral disturbance, psychotic disturbance, mood disturbance, and anxiety
CPT/HCPCS: 74018; J0696; J2405; J2704; J3010

== ENCOUNTER 2019-06-26 18:16 | Emergency (ER) | payer MEDICARE, BC ==
[2019-06-26 18:23] VITALS: BP 172/94
--- OUTSIDE RECORDS SUMMARY | 2019-06-26 18:29 | XMS REPORT | Continuity of Care Document ---
:1950 External Reference #:[id number] Author Name Archana Lombardo O.D. Address [address] [facility] [place] [address] Care Team Providers Name Role Phone Padma Garcia M.D. Primary Care Physician Unavailable Payers Date Identification Numbers Payment Provider Subscriber Policy Number: [id number] Medicare - [facility] Padma Pope PayID: [id number] [address] [facility] [place] [address] Policy Number: [id number] [facility] Armando Pope PayID: [id number] [address] [address] [place] [address] Problems Active Problems Provider Date Acid reflux Onset: Hypertension Onset: Arthritis Onset: Alzheimer's disease Onset: Hypercholesterolemia Onset: Depression Onset: Bone spur Onset: Hormone replacement therapy Onset: Vitreous degeneration Archana Lombardo O.D. Onset: 03/17/2016 Presence of intraocular lens Archana Lombardo O.D. Onset: 03/17/2016 Amblyopia Archana Lombardo O.D. 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 ETOH Use Rarely consumes alcohol Recreational Drug Use Denies Drug Use Tobacco Use Start: Unknown Patient has never smoked Smoking Status Reviewed: 05/06/19 Patient has never smoked Allergies, Adverse Reactions, Alerts Active Allergies Reaction Severity Comments Date Morphine 03/07/2016 Medications Active Medications SIG Qnty Indications Ordering Provider Date Meloxicam Unknown 7.5mg Tablets Flexeril Unknown 5mg Tablets Simvastatin Unknown 5mg Tablets Aspirin Unknown 81mg Tablets DR Premarin Unknown 0.3mg Tablets Xyzal one tablet by Unknown 5mg Tablets mouth every morning Donepezil HCL Unknown 10mg Tablets Glucosamine Unknown Chondroitin 1500 Complex 1500Com Capsules Losartan Potassium Unknown 25mg Tablets Memantine HCL Unknown 10mg Tablets Amlodipine Besylate take 1 tablet by Unknown 5mg mouth once daily Tablets Procedures Date Code Description Status 03/19/2018 16718 Est Patient Comprehensive Exam Completed 03/17/2016 01048 Est Patient Comprehensive Exam Completed 02/15/2014 76414 Est Patient Comprehensive Exam Completed 02/11/2013 63973 Est Patient Comprehensive Exam Completed 03/17/2012 24217 Extracapsular Cataract Extraction W/Intraocular Lens Completed 03/10/2012 16856 Extracapsular Cataract Extraction W/Intraocular Lens Completed 10/14/2011 49535 Ophthalmic Biometry Completed 10/14/2011 94060 Ophthalmic Biometry Completed 10/14/2011 09020 Scanning Computerized Opthalmic Diagnostic Posterior Seg Completed Retina 10/14/2011 88527 Computerized Corneal Topography Completed 10/10/2011 49675 Est Patient Intermediate Exam Completed 03/13/2011 67595 Est Patient Comprehensive Exam Completed 03/12/2010 85954 Determination Of Refractive State Completed 03/12/2010 89604 Est Patient Comprehensive Exam Completed 02/20/2009 22642 Determination Of Refractive State Completed 02/20/2009 29970 Est Patient Comprehensive Exam Completed 02/03/2008 93430 Determination Of Refractive State Completed 02/03/2008 89751 Est Patient Comprehensive Exam Completed 07/31/2006 06278 Determination Of Refractive State Completed 07/31/2006 88998 Est Patient Comprehensive Exam Completed 07/31/2004 94222 Determination Of Refractive State Completed 07/31/2004 54154 Est Patient Comprehensive Exam Completed Encounters Type Date Location Provider Dx Diagnosis Office Visit 03/05/2012 Truong [place], Truong [place]man, 366.16 Senile Nuclear 12:30p martha JOSUE M.D. Sclerosis / Cataract Office Visit 10/14/2011 Truong [place], Truong [place], 366.16 Senile Nuclear 9:45a matrha JOSUE M.D. Sclerosis / Cataract 366.16 Senile Nuclear Sclerosis / Cataract Office Visit 01/15/2010 4:00p Truong Lynn, 374.05 Trichiasis W/O MD Jasmina, martha Zamudio O.D. Entropion Plan of Treatment 05/06/2019 - Archana Lombardo O.D.H43.813 Vitreous degeneration, bilateralComments:You have a Posterior Vitreous Detachment. Please read the pamphlet that was given to you. If you have any changes in your floaters or flashing lights, please contact this office. USE +2.00/ 2.25 READING GLASSESFollow up:1 Year Follow Up You can expect to have your eyes dilated at your next visit. If Dr. Lombardo orders any additional testing, it may require extra time. We recommend that you bring sunglasses, as dilation drops often make you light sensitive until they wear off. We always recommend you bring someone to drive you home if you are uncomfortable driving with your eyes dilated. If you have any questions before your next visit, feel free to call our office at .H26.492 Other secondary cataract, left eyeZ96.1 Presence of intraocular lensComments:The artificial lens implants in both eyes appear to be stable at this time.H53.002 Unspecified amblyopia, left eye
--- OUTSIDE RECORDS SUMMARY | 2019-06-26 18:29 | XMS REPORT | Summary of Care ---
:1950 Author Organization [facility] Address [address] [address] Care Team Providers Name Role Phone Padma Garcia MD Primary Care Provider Reason for Referral MRI/CAT/PET Scan (Routine) Status Reason Specialty Diagnoses / Procedures Referred By Contact Referred To Contact Closed Radiology Diagnoses Memory loss Jesus Crow MD [facility] Pet Ct Procedures PET CT METABOLIC BRAIN IMAGING SUBSEQUENT TREATMENT [address] [place] [address] [address] [place] [address] Reason for Visit MRI/CAT/PET Scan (Routine) Status Reason Specialty Diagnoses / Procedures Referred By Contact Referred To Contact Closed Radiology Diagnoses Memory loss Jesus Crow MD [facility] Pet Ct Procedures PET CT METABOLIC BRAIN IMAGING SUBSEQUENT TREATMENT 1 [address] [place] [address] [address] [place] [address] Encounter Details Date Type Department Care Team Description 05/24/2019 Hospital Encounter [facility] PET CT Outpatient [address] [id number] Allergies Active Allergy Reactions Severity Noted Date Comments Morphine GI Reaction 10/26/2009 documented as of this encounter (statuses as of 05/26/2019) Medications Medication Sig Dispensed Refills Start Date End Date Status amLodipine (NORVASC) 5 Take 5 mg by 0 Active MG Oral Tab mouth EVERY BEDTIME. acetaminophen-codeine Take 1 Tab by 0 Active (TYLENOL #3) 300-30 MG mouth NEEDED. Oral Tab meloxicam (MOBIC) 7.5 Take 7.5 mg by 0 Active MG Oral Tab mouth TWICE DAILY. Aspirin 81 MG Oral Tab Take 81 mg by 0 Active mouth EVERY MORNING. Glucosamine Sulfate Take 1 Tab by 0 Active 1000 MG Oral Tab mouth TWICE DAILY. Cholecalciferol Take 1 Cap by 0 Active (VITAMIN D3) 1000 UNIT mouth DAILY. Oral Cap DONEPEZIL HCL PO Take 10 mg by 0 Active mouth. Estradiol (VAGIFEM) 10 Place into the 0 Active MCG Vaginal Tab vagina. Fluticasone Propionate, Take 2 Sprays by 0 Active Inhal, 50 MCG/BLIST inhalation DAILY. Inhalation AEROSOL POWDER, BREATH ACTIVATED estrogens, conjugated Take 0.3 mg by 0 Active (PREMARIN) 0.3 MG Oral mouth DAILY. Tab mometasone (NASONEX) 50 [place] 1 [place] in 1 Bottle 3 04/28/2018 Active MCG/ACT Nasal nose DAILY. Suspension memantine (NAMENDA) 10 Take 1 Tab by 180 Tab 11 05/20/2018 Active MG Oral TabIndications: mouth TWICE Memory loss, Vascular DAILY. dementia without behavioral disturbance azelastine (ASTELIN) [place] 1 [place] in 1 Bottle 3 09/10/2018 Active 0.1 % Nasal Solution nose TWICE DAILY. cetirizine (ZYRTEC) 10 Take 1 Tab by 90 Tab 2 09/10/2018 Active MG Oral Tab mouth DAILY. documented as of this encounter (statuses as of 05/26/2019) Active Problems Problem Noted Date Primary osteoarthritis of right knee 04/10/2017 Primary osteoarthritis of left knee 10/30/2016 S/P arthroscopy of left knee 07/17/2015 Tear of medial cartilage or meniscus of knee, current 06/07/2015 Knee pain, left 06/04/2015 Medial meniscus tear 06/04/2015 GERD (gastroesophageal reflux disease) Hypercholesteremia HTN (hypertension) Depression documented as of this encounter (statuses as of 05/26/2019) Immunizations Name Administration Dates Next Due Depo Medrol (80mg) 10/30/2016 documented as of this encounter Social History Tobacco Use Types Packs/Day Years Used Date Never Smoker Smokeless Tobacco: Never Used Alcohol Use Drinks/Week oz/Week Comments Not Currently Sex Assigned at Date Recorded Not on file Job Start Date Occupation Industry Not on file Not on file Not on file Travel History Travel Start Travel End No recent travel history available. documented as of this encounter Last Filed Vital Signs Not on filedocumented in this encounter Plan of Treatment Date Type Specialty Care Team Description 06/30/2019 Office Visit Neurology Jesus Crow MD [address] [address] [phone] Name Type Priority Associated Diagnoses Date/Time PET CT METABOLIC BRAIN Imaging Routine Memory loss 05/24/2019 2:48 PM EDT IMAGING SUBSEQUENT TREATMENT Name Type Priority Associated Diagnoses Order Schedule PET CT METABOLIC BRAIN Imaging Routine Memory loss 1 Occurrences starting IMAGING SUBSEQUENT 05/24/2019 until TREATMENT 05/24/2019 Health Maintenance Due Date Last Done Comments MEDICARE ANNUAL WELLNESS VISIT 1950 DEPRESSION SCREENING 1960 HIV SCREENING 01/30/1963 LIPID DISORDER SCREENING 01/30/1966 HEPATITIS C SCREENING 1988 MAMMOGRAM (SCREENING) 1988 COLONOSCOPY SCREENING 01/30/1998 ZOSTER IMMUNIZATION SERIES (1 of 2) 01/30/1998 FALL RISK ASSESSMENT 01/30/2013 OSTEOPOROSIS SCREENING 01/30/2013 PNEUMOCOCCAL 65+YRS (1 of 2 - 01/30/2013 PCV13) INFLUENZA VACCINE (#1) 2019 HPV IMMUNIZATION SERIES Aged Out No longer eligible based on patient's age to complete this topic MENINGOCOCCAL VACCINE IMM Aged Out No longer eligible based on patient's age to complete this topic documented as of this encounter Implants Implanted Type Area Process Automation Engineer Device Shelf Model / Identifier Expiration Serial / Lot Date Bone Cement, Double 80gm - [id number] Right: [id number] / Implanted: Qty: 1 on 02/12/2010 at [facility] / [id number] Patella, 35mm Nexgen - [id number] Right: BETSY MILLER / Implanted: Qty: 1 on 02/12/2010 at [facility] / [id number] Tibial Plate Size 5 Nexgen - [id number] Right: BETSY MILLER [id number] / Implanted: Qty: 1 on 02/12/2010 at [facility] / [id number] Prolong Surface Lps Ef 5/6 10m - [id number] Right: BETSY MILLER [id number] [id number] / Implanted: Qty: 1 on 02/12/2010 at [facility] / [id number] Femoral Comp Lps Flex Opt F-R - [id number] Right: BETSY MILLER [id number]- [id number] / Implanted: Qty: 1 on 02/12/2010 at [facility] / [id number] documented as of this encounter Results Not on filedocumented in this encounter Visit Diagnoses Diagnosis Memory loss documented in this encounter Insurance Payer Benefit Plan / Subscriber ID Effective Dates Phone Address Type Group MEDICARE MEDICARE PART A & xxxxxxxxxxx 2013-Present Medicare B [employer] xxxxxxxxxxxx 2014-Present [employer] (Home) [place], [place] [phone] [id number] (Work) documented as of this encounter
[2019-06-26 21:56] LABS: Urine Appearance Cloudy; Urine Bacteria 3+ (Absent); Urine Bilirubin Negative (Negative); Urine Blood 3+ (Negative); Urine Color Yellow; Urine Glucose Negative (Negative); Urine Ketones Negative (Negative); Urine Nitrite Positive (Negative); Urine Protein Negative (Negative); Urine Red Blood Cell 2+(6-10/hpf) (Absent); Urine Specific Gravity 1.021 (1.010-1.030); Urine Squamous Epithelial Cell Present (Absent); Urine Urobilinogen Negative (Negative); Urine White Blood Cell 3+(>20/hpf) (Absent)
--- NOTE | 2019-06-26 21:57 | ED ---
Complex/Multi-Sys Presentation - HPI Summary HPI Summary: This pt is a 69 Y/O F presenting to [facility] accompanied by her with a CC of fatigue. Her states that she has had increasing edema in her bilateral lower extremities and has been sleeping through much of the day. He denies any medication changes, SOB, N/V, decrease in appetite, dysuria, and diarrhea. He states that she might have a kidney stone because of their last visit to Dr. Ríos over the summer. She has no aggravating or alleviating factors. She has a PMHx of kidney stones and Alzheimers disease. PT IS A LEVEL 5 CAVEAT DUE TO HER HX OF ALZHEIMER'S DISEASE. ALL HISTORY WAS OBTAINED FROM HER EXCEPT FOR HER LLQ ABDOMINAL PAIN. - History Of Current Complaint Chief Complaint: EDUrogenitalProblems Time Seen by Provider: 06/26/19 21:23 Hx Obtained From: Family/Big Data Admin - Hx From Patient Unobtainable Due To: Other - Alzheimer's disease Location: Pain At: - LLQ Aggravating Factor(s): nothing Alleviating Factor(s): nothing Associated Signs And Symptoms: Positive: Edema, Abdominal Pain - LLQ, Other - Negative:. Negative: SOB, Nausea, Vomiting, Diarrhea - Negative: decrease in appetite, Dysuria - Allergies/Home Medications Allergies/Adverse Reactions: Allergies Allergy/AdvReac Type Severity Reaction Status Date / Time morphine Allergy Nausea And Verified 06/26/19 18:23 Vomiting PMH/Surg Hx/FS Hx/Imm Hx Previously Healthy: Yes Endocrine/Hematology History: Reports: Hx Anemia - prior to hysterectomy Denies: Hx Diabetes, Hx Thyroid Disease Cardiovascular History: Reports: Hx Hypertension - ON MEDS, Other Cardiovascular Problems/Disorders - Hyperlipidemia Denies: Hx Coronary Artery Disease, Hx Pacemaker/ICD Respiratory History: Denies: Hx Asthma, Other Respiratory Problems/Disorders GI History: Reports: Hx Gastroesophageal Reflux Disease - history of reflux, not treated at present, Other GI Disorders - Cholecystectomy-gallstones History: Reports: Hx Kidney Infection - Pyelonephritis 08/07/18, Hx Kidney Stones - Current stone in right kidney, Other Problems/Disorders - Pyelonephritis/E coli bacteremia, hysterectomy-anemia Denies: Hx Renal Disease Musculoskeletal History: Reports: Hx Arthritis - GENERALIZED, Hx Bursitis - Right shoulder, Hx Tendonitis - right elbow, Other Musculoskeletal History - R total knee replacement, Left knee meniscus repair Denies: Hx Osteoporosis Sensory History: Reports: Hx Cataracts - bilateral cataract extraction Denies: Hx Contacts or Glasses, Hx Hearing Aid Opthamlomology History: Reports: Hx Cataracts - bilateral cataract extraction Denies: Hx Contacts or Glasses Neurological History: Reports: Other Neuro Impairments/Disorders - Alzheimer's, memory problems-FTD(Frontal Temporal Dementia)per Psychiatric History: Denies: Hx Panic Disorder - Cancer History Cancer Type, Location and Year: None reported Hx Chemotherapy: No Hx Radiation Therapy: No - Surgical History Surgery Procedure, Year, and Place: HYSTERECTOMY. RIGHT KNEE REPLACEMENT. KNEE MENISCUS REPAIR 20 YRS. URETERAL STENT PLACED A FEW TIMES IN THE PAST. Bilateral cataracts. Cholecystectomy Hx Anesthesia Reactions: No Infectious Disease History: No Infectious Disease History: Denies: Traveled Outside the [place] in Last 30 Days - Family History Known Family History: Positive: Cardiac Disease - Social History Alcohol Use: Rare Alcohol Amount: wine once in awhile Substance Use Type: Reports: None Hx Tobacco Use: No Smoking Status (MU): Never Smoked Tobacco Review of Systems - ROS Summary Review of Systems Summary: A FULL ROS IS UNOBTAINABLE DUE TO THE PT'S HX OF ALZHEIMER'S DISEASE. HER ONLY REPORTABLE SYMPTOMS WAS LLQ PAIN WHILE HER STATED THAT OTHER SYMPTOMS INCLUDED IN THIS REPORT. Negative: Shortness Of Breath Positive: Abdominal Pain - LLQ. Negative: Vomiting, Diarrhea, Nausea Negative: dysuria Positive: Edema All Other Systems Reviewed And Are Negative: No Physical Exam - Summary Physical Exam Summary: A FULL PE IS UNOBTAINABLE DUE TO THE PT'S HX OF ALZHEIMER'S DISEASE. General: Well-developed, obese female. No acute distress. HEENT: Normocephalic, Atraumatic. Eyes: Conjuctiva normal, PERRL. Ears: TMs within normal limits. Nares: (-) discharge, (-) erythema. Oropharynx: Clear, mucous membranes moist, (-) exudates. Neck: Soft, FROM, (-) lymphadenopathy, (-) thyromegaly, (-) JVD. Cardiovascular: Normal sinus rhythm, (-) murmur. Lungs: Clear to auscultation bilaterally (-) wheezes, (-) rales, (-) rhonchi. Abdomen: Soft, mild LLQ tenderness, non-distended, (-) organomegaly, normal bowel sounds. Back: (-) CVA tenderness Extremities: +1 edema bilateral lower extremity Skin: Warm, dry, (-) rash. Neuro: Alert and oriented x3, no focal deficits. Psychiatric: Mood normal, affect normal. Triage Information Reviewed: Yes Vital Signs On Initial Exam: Initial Vitals Temp Pulse Resp BP Pulse Ox 98.7 F 84 16 172/94 97 06/26/19 18:20 06/26/19 18:20 06/26/19 18:20 06/26/19 18:20 06/26/19 18:20 Vital Signs Reviewed: Yes Diagnostics - Vital Signs Vital Signs Temp Pulse Resp BP Pulse Ox 06/26/19 18:20 98.7 F 84 16 172/94 97 - Laboratory Result Diagrams: 06/26/19 21:45 06/26/19 21:45 Lab Statement: Any lab studies that have been ordered have been reviewed, and results considered in the medical decision making process. - Radiology CXR Radiology Interpretation Completed By: ED Physician Summary of Radiographic Findings: cardiomegally, no acute infiltrte or pulmonary effusion. Pending offical review. Complex Multi-Symp Course/Dx Course Of Treatment: THIS PT WAS A LEVEL 5 CAVEAT DUE TO HER HX OF ALZEIHMER'S DISEASE. Her stated that she was having edema and kidney stones. She reported onl LLQ abdominal pain. Her PE found bilateral 1+ Edema and LLQ abdominal pain. Her Urine labs were consistent with a UTI. Her CXR found the following: cardiomegally, no acute infiltrte or pulmonary effusion. She will be discharged home with a Dx of a UTI and be given a course of ABX. - Diagnoses Provider Diagnoses: UTI (urinary tract infection) Discharge ED - Sign-Out/Discharge Documenting (check all that apply): Patient Departure - discharge Patient Received Moderate/Deep Sedation with Procedure: No - Discharge Plan Condition: Stable Disposition: HOME Prescriptions: Cephalexin CAP* [Keflex CAP*] 500 mg PO QID 7 Days #28 cap Patient Education Materials: Urinary Tract Infection in Older Adults (ED) Referrals: [facility] [Outside] - 3 Days Additional Instructions: PLEASE RETURN TO THE EMERGENCY DEPARTMENT FOR ANY NEW OR WORSENING SYMPTOMS. FOLLOW UP WITH THE [facility] FOR A PRIMARY CARE PHYSICIAN FOLLOW UP IN 1-3 DAYS. Take the prescribed medications as directed. - Billing Disposition and Condition Condition: STABLE Disposition: Home - Attestation Statements Document Initiated by Scribe: Yes Documenting Scribe: Marcial Sim Provider For Whom Catalino is Documenting (Include Credential): Annette Cho MD Scribe Attestation: Marcial Heath, scribed for Annette Cho MD on 06/28/19 at 2004. Scribe Documentation Reviewed: Yes Provider Attestation: The documentation as recorded by the Marcial chandra accurately reflects the service I personally performed and the decisions made by me, Annette Cho MD Status of Scribe Document: Viewed
[2019-06-26 21:59] LABS: ABS Eosinophils 0.1 10^3/ul (0-0.6); ABS Lymphocytes 2.2 10^3/ul (1.0-4.8); ABS Monocytes 0.6 10^3/ul (0-0.8); ABS Neutrophils 4.7 10^3/ul (1.5-7.7); Eosinophil % 1.6 %; Hematocrit 44 % (35-47); Hemoglobin 14.7 g/dL (12.0-16.0); Mean Corpuscular HGB Conc 34 g/dL (31-36); Mean Corpuscular Hemoglobin 30 pg (27-31); Mean Corpuscular Volume 88 fL (80-97); Mean Platelet Volume 8.4 fL (7.4-10.4); Platelet Count 177 10^3/uL (150-450); Red Blood Count 4.96 10^6 /uL (3.70-4.87); Red Cell Distribution Width 13 % (10-15); White Blood Count 7.7 10^3/uL (3.5-10.8)
[2019-06-26] MEDS ORDERED: Cephalexin CAP* 500 MG PO ONE (22:05)
[2019-06-26 22:07] LABS: INR 0.96 (0.82-1.09)
[2019-06-26 22:17] LABS: Albumin 4.2 g/dL (3.2-5.2); Albumin/Globulin Ratio 1.4 (1-3); BUN/Creatinine Ratio 25.2 (8-20); C Reactive Protein 7.46 mg/L (<8.01); Calcium 9.8 mg/dL (8.6-10.3); EGFR African American 63.9 (>60); EGFR Non-African American 52.8 (>60); Globulin 3.1 g/dL (2-4); Potassium 3.8 mmol/L (3.5-5.0); Total Bilirubin 0.7 mg/dL (0.2-1.0); Total Protein 7.3 g/dL (6.4-8.9)
--- NOTE | 2019-06-28 05:47 | PN ---
Progress Note - Progress Note Date of Service: 06/26/19 Note: Urine culture preliminary grew Escherichia coli 100,000 Patient was placed on Keflex Will await sensitivities
--- NOTE | 2019-06-28 09:28 | PN ---
Progress Note - Progress Note Date of Service: 06/28/19 Note: Urine culture preliminary are equally 100,000 Patient was placed then Keflex prior to discharge This is sensitive to organism Nothing further required nasal
== END 2019-06-26 21:41 | disposition home or self-care (01) ==
LOC: ED 18:16
DX: N39.0 Urinary tract infection, site not specified (principal); R60.9 Edema, unspecified; R10.32 Left lower quadrant pain; I10 Essential (primary) hypertension; K21.9 Gastro-esophageal reflux disease without esophagitis; Z87.442 Personal history of urinary calculi; Z90.710 Acquired absence of both cervix and uterus
CPT/HCPCS: 36415; 71045; 80053; 81003; 81015; 83605; 83690; 84484; 85025; 85610; 86140; 87077; 87086; 87186; 99283; A9270-GY

== ENCOUNTER 2019-12-22 20:13 | Observation (INO) | payer MEDICARE, BC ==
[2019-12-22] MEDS ORDERED: NS 0.9% 1000 ML** 1,000 ML IV ONE (20:36)
[2019-12-22] MEDS ORDERED: Acetaminophen TAB* 325 MG PO ONE (20:36)
--- NOTE | 2019-12-22 20:41 | ED ---
Respiratory - HPI Summary HPI Summary: 69 year old F presenting to [facility] with a chief complaint of shortness of breath , vomiting, and a low grade fever. Per the patient's daughters she never complains of pain. She has a history of Alzheimer's Disease, kidney stones, hypertension, and UTIs. She has has multiple kidney stones in the past that required intervention. Patient denies any cough. She is unable to provide any history and answers all questions no. Medication list reviewed. Allergy list reviewed. THE HPI IS LIMITED DUE TO LEVEL 5 CAVEAT - History of Alzheimer's Disease. - History of Current Complaint Chief Complaint: EDShortnessOfBreath Stated Complaint: FEVER/WEAKNESS PER EMS Time Seen by Provider: 12/22/19 20:23 Hx Obtained From: Family/Hand Paster Associated Signs and Symptoms: Negative - Cough - Allergy/Home Medications Allergies/Adverse Reactions: Allergies Allergy/AdvReac Type Severity Reaction Status Date / Time morphine Allergy Nausea And Verified 12/22/19 21:17 Vomiting Home Medications: Home Medications Simvastatin [Zocor] 10 mg PO QPM 11/04/13 [History Confirmed 12/22/19] amLODIPine TAB* [Norvasc 5 mg TAB*] 5 mg PO QPM 11/04/13 [History Confirmed ] Memantine HCl [Namenda] 1 tab PO BID #0 03/23/15 [History Confirmed 12/22/19] Losartan Potassium 25 mg PO QPM 08/07/18 [History Confirmed 12/22/19] Aspirin [Aspir-Low] 1 tab PO QPM 08/17/18 [History Confirmed 12/22/19] Cholecalciferol CAP/TAB(NF) [Vitamin D3 CAP/TAB (NF)] 25 mg PO QPM 08/17/18 [ History Confirmed 12/22/19] Donepezil TAB* [Aricept 5 MG TAB*] 5 mg PO QPM 08/17/18 [History Confirmed 12/21] Estrogens, Conjugated [Premarin] 0.3 mg PO QPM 08/17/18 [History Confirmed 12/21] Glucosam/Chond/Collagen/Hyalur [Glucosamine Chondroitin Cap] 1 cap PO QPM #0 [History Confirmed 12/22/19] Meloxicam [Mobic] 1 tab PO BID 08/17/18 [History Confirmed 12/22/19] Multivitamin [Once Daily] 1 tab PO DAILY #0 08/17/18 [History Confirmed 12/22/19 ] Sulfamethox/Trimethoprim DS* [Bactrim DS 800/160 TAB*] 1 tab PO BID #14 tab [Rx] PMH/Surg Hx/FS Hx/Imm Hx Endocrine/Hematology History: Reports: Hx Anemia - prior to hysterectomy Denies: Hx Diabetes, Hx Thyroid Disease Cardiovascular History: Reports: Hx Hypertension - ON MEDS, Other Cardiovascular Problems/Disorders - Hyperlipidemia Denies: Hx Coronary Artery Disease, Hx Pacemaker/ICD Respiratory History: Denies: Hx Asthma, Other Respiratory Problems/Disorders GI History: Reports: Hx Gastroesophageal Reflux Disease - history of reflux, not treated at present, Other GI Disorders - Cholecystectomy-gallstones History: Reports: Hx Kidney Infection - Pyelonephritis 08/07/18, Hx Kidney Stones - Current stone in right kidney, Other Problems/Disorders - Pyelonephritis/E coli bacteremia, hysterectomy-anemia Denies: Hx Renal Disease Musculoskeletal History: Reports: Hx Arthritis - GENERALIZED, Hx Bursitis - Right shoulder, Hx Tendonitis - right elbow, Other Musculoskeletal History - R total knee replacement, Left knee meniscus repair Denies: Hx Osteoporosis Sensory History: Reports: Hx Cataracts - bilateral cataract extraction Denies: Hx Contacts or Glasses, Hx Hearing Aid Opthamlomology History: Reports: Hx Cataracts - bilateral cataract extraction Denies: Hx Contacts or Glasses Neurological History: Reports: Other Neuro Impairments/Disorders - Alzheimer's, memory problems-FTD(Frontal Temporal Dementia)per Psychiatric History: Denies: Hx Panic Disorder - Cancer History Cancer Type, Location and Year: None reported Hx Chemotherapy: No Hx Radiation Therapy: No - Surgical History Surgery Procedure, Year, and Place: HYSTERECTOMY. RIGHT KNEE REPLACEMENT. KNEE MENISCUS REPAIR 20 YRS. URETERAL STENT PLACED A FEW TIMES IN THE PAST. Bilateral cataracts. Cholecystectomy Hx Anesthesia Reactions: No - Immunization History Immunizations Up to Date: Yes Infectious Disease History: No Infectious Disease History: Denies: Traveled Outside the [place] in Last 30 Days - Family History Known Family History: Positive: Cardiac Disease - Social History Alcohol Use: Rare Alcohol Amount: wine once in awhile Hx Substance Use: No Substance Use Type: Reports: None Hx Tobacco Use: No Smoking Status (MU): Never Smoked Tobacco - Additional Comments History Additional Comments: LIMITED DUE TO LEVEL 5 CAVEAT - History of Alzheimer's Disease. Review of Systems Positive: Fever Positive: Shortness Of Breath. Negative: Cough Positive: Vomiting All Other Systems Reviewed And Are Negative: No - Comments Additional Review of Systems Comments: THE ROS IS LIMITED DUE TO LEVEL 5 CAVEAT - History of Alzheimer's Disease. Physical Exam - Summary Physical Exam Summary: THE Physical Exam IS LIMITED DUE TO LEVEL 5 CAVEAT - History of Alzheimer's Disease. Constitutional: Well-developed, Well-nourished, Alert. (-) Distressed, patient answers questions but says no to every question. Skin: Warm, Dry HENT: Normocephalic; Atraumatic Eyes: Conjunctiva normal Neck: Musculoskeletal ROM normal neck. (-) JVD, (-) Stridor, (-) Tracheal deviation Cardio: Rhythm regular, rate normal, Heart sounds normal; Intact distal pulses; Radial pulses are 2+ and symmetric. (-) Murmur Pulmonary/Chest wall: Effort normal. (-) Respiratory distress, (-) Wheezes, (-) Rales Abd: Soft, (-) tenderness, (-) Distension, (-) Guarding, (-) Rebound Musculoskeletal: (-) Edema, no flank tenderness Lymph: (-) Cervical adenopathy Psych: Mood and affect Normal Triage Information Reviewed: Yes Vital Signs On Initial Exam: Initial Vitals Pulse Pulse Ox 100 75 12/22/19 20:24 12/22/19 20:24 Vital Signs Reviewed: Yes Procedures - Sedation Patient Received Moderate/Deep Sedation with Procedure: No Diagnostics - Vital Signs Vital Signs Temp Pulse Resp BP Pulse Ox 12/22/19 20:29 100 128/78 94 12/22/19 20:25 100.1 F 101 20 93 12/22/19 20:24 100 75 - Laboratory Result Diagrams: 12/24/19 05:20 12/24/19 05:20 Lab Statement: Any lab studies that have been ordered have been reviewed, and results considered in the medical decision making process. - Radiology Chest x-ray Radiology Interpretation Completed By: ED Physician Summary of Radiographic Findings: No acute process. ED physician has reviewed and interpreted this report. Disposition - Course Course Of Treatment: Patient was brought in by family due to fever and vomiting. Patient has a history of Alzheimer's and cannot provide any history. Per family, patient never complains of pain. Patient has a history of multiple kidney stones in the past including sepsis from a infected stone. Patient had blood work performed which showed leukocytosis, elevated creatinine at her baseline. Patient had a normal lactate. Patient was covered with Zosyn empirically and given IV fluids. Patient was signed out to Dr. Bravo pending CT scan and UA. - Diagnoses Provider Diagnoses: Tachycardia, Vomiting, Leukocytosis, Fever, Ureterolithiasis, UTI (urinary tract infection) Discharge ED - Sign-Out/Discharge Documenting (check all that apply): Sign-Out Patient Signing out patient TO: Julien Bravo - Pending labs, CT abdomen, and disposition. - Discharge Plan Condition: Stable Disposition: ADMITTED TO [facility] - Billing Disposition and Condition Condition: STABLE Disposition: Admitted to [facility] - Attestation Statements Document Initiated by Catalino: Yes Documenting Scribe: Nydia Cabrera Provider For Whom Catalino is Documenting (Include Credential): Abilio Ansari MD Scribe Attestation: Nydia Heath, scribed for Abilio Ansari MD on 12/24/19 at 1128. Scribe Documentation Reviewed: Yes Provider Attestation: The documentation as recorded by the Nydia chandra accurately reflects the service I personally performed and the decisions made by , Abilio Ansari MD Status of Scribe Document: Viewed
[2019-12-22] MEDS ORDERED: Piperacillin/Tazobac ADVAN(*) 3.375 GM in NS 0.9% 100 ML* 100 ML IVPB ONE (20:45)
[2019-12-22 21:23] LABS: ABS Lymphocytes 0.9 10^3/ul (1.0-4.8); ABS Monocytes 0.8 10^3/ul (0-0.8); ABS Neutrophils 10.4 10^3/ul (1.5-7.7); Hematocrit 41 % (35-47); Lymphocyte % 7.2 %; Mean Corpuscular HGB Conc 34 g/dL (31-36); Mean Corpuscular Hemoglobin 30 pg (27-31); Mean Corpuscular Volume 87 fL (80-97); Mean Platelet Volume 8.2 fL (7.4-10.4); Platelet Count 148 10^3/uL (150-450); Red Blood Count 4.72 10^6 /uL (3.70-4.87); Red Cell Distribution Width 14 % (10-15); White Blood Count 12.1 10^3/uL (3.5-10.8)
[2019-12-22 21:39] LABS: Albumin/Globulin Ratio 1.3 (1-3); BUN/Creatinine Ratio 20.1 (8-20); C Reactive Protein 97.53 mg/L (<8.01); Calcium 9.6 mg/dL (8.6-10.3); EGFR African American 45.2 (>60); EGFR Non-African American 37.4 (>60); Potassium 3.9 mmol/L (3.5-5.0); Total Bilirubin 1.4 mg/dL (0.2-1.0)
--- NOTE | 2019-12-22 22:13 | ED ---
Progress - Progress Note Progress Note: The patient is a sign-out from Dr. Abilio Ansari MD, to Dr. Julien rBavo MD, at change of shift at 2200 on 12/22/2019, pending blood work, Abdomen/Pelvis CT and disposition. Blood work reveals WBCs 12.1, platelets 148, absolute neutrophils 10.4, absolute lymphocytes 0.9, BUN 28, creatinine 1.39, glucose 162, total bili 1.4, CRP 97.53. Urinalysis is positive for 2+ protein, trace ketones, 2+ blood, 3+ leukocyte esterase, 3+ WBCs, 3+ RBCs, 1+ bacteria. Influenza A and B are negative. Abdomen/Pelvis CT impression reveals mildly obstructing 4, 9, and 8 mm calculi left UPJ, bilateral nephrolithiasis, moderate hepatic steatosis, and bilateral inguinal hernias without strangulation. Dr. Ríos from urology recommends Gentamicin, admission with plan for stent placement in the morning. Dr. Roldan from the hospitalist services accepts the patient for admission. - Results/Orders Results/Orders: Abdomen/Pelvis CT Impression: 1. Mildly obstructing 4, 9, and 8 mm calculi left UPJ. 2. Bilateral nephrolithiasis. 3. Moderate hepatic steatosis (14-28% fat fraction). 4. Bilateral inguinal hernias. No strangulation. Dr. Bravo has reviewed this report. Course/Dx - Course Course Of Treatment: This patient was signed out by Dr. Abilio Ansari at shift change. He reports the patient is a 69-year-old female with dementia who presents to the emergency department with a chief complaint of fever and UTI symptoms. He did order blood work which shows no significant abnormality except for WBCs 12.1, platelet count 148, BUN 28, creatinine 1.39, glucose 162, and CRP of 97.5. Urinalysis with positive UTI. Influenza A and B are negative. He gave IV fluids and Zosyn for what he thinks the patient has a UTI. Abdominopelvic CT impression: Mildly obstructing 4, 9, and a millimeter calculus in the left UPJ. I discussed the case with Dr. Ríos, and he recommends giving the patient gentamicin 160 mg IV and admission to the hospitalist. I discussed my physical exam and test results with Dr. Roldan from the hospitalist services, and she agrees to admit the patient to her services. The patient is hemodynamically stable. - Diagnoses Provider Diagnoses: Tachycardia, Vomiting, Leukocytosis, Fever, Ureterolithiasis, UTI (urinary tract infection) - Provider Notifications Discussed Care Of Patient With: Bautista Ríos - urology Time Discussed With Above Provider: 23:05 Instructed by Provider To: Other - I discussed the patients case with Dr. Ríos , who suggests Gentamicin and admission with plan for stent placement in the morning. Dr. Roldan from the hospitalist services accepts the patient for admission [2320]. Discharge ED - Sign-Out/Discharge Documenting (check all that apply): Patient Departure - Patient accepted for admission by Dr. Roldan., Receiving Sign-Out Receiving patient FROM: Abilio Ansari - Patient is a sign-out from Dr. Abilio Ansari MD, at 2200 on 12/22/2019, pending labs, Abdomen/Pelvis CT, and disposition. - Discharge Plan Condition: Stable Disposition: ADMITTED TO [facility] - Billing Disposition and Condition Condition: STABLE Disposition: Admitted to [facility] - Attestation Statements Document Initiated by Jaspale: Yes Documenting Scribe: Taina Forte Provider For Whom Mandaibe is Documenting (Include Credential): Julien Bravo MD Scribe Attestation: I, Taina Forte, scribed for Julien Bravo MD on 12/23/19 at 0400. Scribe Documentation Reviewed: Yes Provider Attestation: The documentation as recorded by the Taina chandra accurately reflects the service I personally performed and the decisions made by ma, Julien Bravo MD Status of Scribe Document: Viewed Procedures - Sedation Patient Received Moderate/Deep Sedation with Procedure: No
[2019-12-22 22:26] LABS: Urine Appearance Cloudy; Urine Bilirubin Negative (Negative); Urine Blood 2+ (Negative); Urine Color Yellow; Urine Glucose Negative (Negative); Urine Ketones Trace (Negative); Urine Nitrite Negative (Negative); Urine Protein 2+(100 mg/dL) (Negative); Urine Specific Gravity 1.016 (1.010-1.030); Urine Urobilinogen Negative (Negative)
[2019-12-22 22:38] LABS: Urine Bacteria 1+ (Absent); Urine Red Blood Cell 3+(>10/hpf) (Absent); Urine White Blood Cell 3+(>20/hpf) (Absent)
[2019-12-22 22:51] LABS: Influenza A Molecular Negative (Negative); Influenza B Molecular Negative (Negative)
[2019-12-22] MEDS ORDERED: Gentamicin ADULT (*) 40 MG/ML VIAL (2 ML VIAL = 80 MG) IVPB ONE (23:34)
[2019-12-23] MEDS ORDERED: Acetaminophen TAB* 325 MG PO PRN (00:29)
[2019-12-23] MEDS ORDERED: cefTRIAXone(*) 1 GM in NS 0.9% 50 ML* 50 ML IVPB SCH ×2 (01:00→18:00)
[2019-12-23] MEDS ORDERED: Gentamicin ADULT (*) 160 MG in NS 0.9% 100 ML* 100 ML IVPB ONE (01:30)
[2019-12-23] MEDS: NS 0.9% 1000 ML** 1,000 ML IV SCH ×2 (02:09→16:56)
--- NOTE | 2019-12-23 04:32 | HP ---
CC: Dr. Garcia; Dr. Ríos * HISTORY AND PHYSICAL: DATE OF ADMISSION: 12/23/19 PRIMARY CARE PROVIDER: Dr. Garcia. CHIEF COMPLAINT: Fever and generalized weakness as reported by family. HISTORY OF PRESENT ILLNESS: Padma Pope is a 69-year-old female with a history of significant Alzheimer dementia, who is not very able to contribute to give me any history of her presentation, who was sent in by her family to the ED with concerns of fever and generalized weakness. The patient herself currently has no complaints of pain, but she is pleasantly confused and oriented to self only. She was noted to have left-sided obstructing ureteral calculi and abnormal urinalysis with suspected urinary tract infection. She is going to be placed on overnight observation. Dr. Ríos was notified by the ED provider and will perform a cystoscopy in the morning. PAST MEDICAL HISTORY: Please note that all of the information was obtained from medical records as the patient is not a reliable historian due to her Alzheimer's and does include the followin. Alzheimer's for the past 15 years. 2. History of kidney stones and cystoscopies in the past. 3. Hypertension. 4. Hyperlipidemia. 5. Status post knee replacement. 6. Cholecystectomy. 7. Hysterectomy. MEDICATIONS: At home include: 1. Multivitamin 1 tablet daily. 2. Glucosamine chondroitin 1 tablet daily. 3. Amlodipine 5 mg daily. 4. Bactrim 1 tablet b.i.d. 5. Zocor 10 mg q.p.m. 6. Namenda 1 tablet b.i.d. 10 mg tablets. 7. Meloxicam 7.5 mg 2 times a day as needed. 8. Losartan 25 mg q.p.m. 9. Premarin 0.3 mg q.p.m. 10. Aricept 5 mg daily. 11. Vitamin D3 one capsule q.p.m. 12. Aspirin 81 mg daily. 13. Zocor 10 mg q.p.m. ALLERGIES: MORPHINE. FAMILY HISTORY: Unobtainable from this patient who has significant dementia. SOCIAL HISTORY: Unobtainable from the patient. The patient lives with her Armando Pope who is her surrogate. The patient is a full code. REVIEW OF SYSTEMS: Please see history of present illness, otherwise unobtainable from the patient who has significant dementia, is oriented to self but patient overall denies any pain or shortness of breath. PHYSICAL EXAMINATION GENERAL: The patient is a pleasant 69-year-old female who is in no acute distress. The patient is oriented to self only. VITAL SIGNS: Blood pressure of 122/69, heart rate of 89 and regular, respiratory rate 20, oxygen saturation 90% on room air, temperature of 100.1. HEENT: Head: Atraumatic, normocephalic. Eyes: Pupils equal and reactive to light and accommodation. Oropharynx clear. Mucosa moist. NECK: Supple. No JVD. No bruits bilaterally. RESPIRATORY: Clear to auscultation bilaterally. CARDIOVASCULAR: Regular rate and rhythm. No murmur. ABDOMEN: Soft, protuberant, nontender. Bowel sounds present in all 4 quadrants. There is no CVA tenderness on palpation of bilateral flanks. EXTREMITIES: There is trace bilateral ankle edema. Pulses are +2 bilaterally. There is no clubbing or cyanosis. NEUROLOGIC: On neuro evaluation, speech clear. Cranial nerves II through XII grossly intact. Motor strength is 5/5 bilaterally. SKIN: On evaluation of the skin, there is an ecchymosis over the distal part of the patient's right foot, likely related to recent trauma. The area is approximately 5 cm in diameter. There are no other noted wounds or rashes. DIAGNOSTIC STUDIES/LAB DATA: White blood cell count 12.1, hemoglobin 14.0, hematocrit 41, platelets 148,000. Sodium 138, potassium 3.9, chloride 112, carbon dioxide 27, BUN 28, creatinine 1.39. Urinalysis: +2 protein, trace ketones, +2 blood, +2 esterase, +3 wbc's, +3 rbc' s, and +1 bacteria. Influenza testing is negative. Portable chest x-ray, reviewed by myself prior to official radiologist's report shows no acute cardiopulmonary disease. Abdomen and pelvis CT done on 12/12/19, impression: "Mildly obstructing 4, 9, and 8 mm calculi at the left ureteropelvic junction. Bilateral nephrolithiasis. Moderate hepatic steatosis. Bilateral inguinal hernias with no strangulation." ASSESSMENT AND PLAN: 1. The patient has leukocytosis, mildly increased temperature and was noted by the family to not acting like herself. She has abnormal urinalysis and obstructing calculi in the left ureter. She is going to be placed on overnight observation with NPO in the morning for cystoscopy to be performed by Dr. Ríos. Dr. Ríos discussed the case with the ED provider. The patient received a dose of gentamicin in the ED as per Dr. Ríos's recommendation as well as a dose of Zosyn. She is going to be placed on gentle intravenous hydration. 2. In regards to the patient's dementia, appears to be at baseline. It is rather severe, although the patient is cooperative with the evaluation. We will continue the patient's Aricept. Namenda is unfortunately not on the hospital's formulary. 3. For DVT prophylaxis: The patient is going to be placed on heparin subcutaneously. 4. The patient's code status is full. Her surrogate is her . 5. Forearm hypertension. Amlodipine is going to be continued. TIME SPENT: Approximately 55 minutes was spent on admission of this patient, more than half the time was spent [id number] with the patient during the interview and physical exam. [id number]/[facility] #: [id number] AMY
[2019-12-23] MEDS: Heparin VIAL(*) 5000 UNITS/ML VIAL (FIVE THOUSAND) SUBCUT SCH ×3 (06:28→21:38)
[2019-12-23] MEDS ORDERED: Lidocaine 2% PF * 5 ML VIAL ONE (12:30)
[2019-12-23] MEDS ORDERED: KETAMINE HCL* 50 MG/ML 10 ML VIAL ONE (12:30)
[2019-12-23] MEDS ORDERED: Midazolam* 1 MG/ML 5 ML VIAL (5 MG) ONE (12:30)
[2019-12-23] MEDS ORDERED: Ondansetron INJ* 2 MG/ML VIAL ONE (12:30)
[2019-12-23] MEDS ORDERED: Propofol* 10 MG/ML 20 ML BTL ONE (12:30)
[2019-12-23] MEDS ORDERED: fentaNYL* 50 MCG/ML 2 ML VIAL (100 MCG VIAL) ONE (12:30)
[2019-12-23] MEDS ORDERED: Dexamethasone IV* 4 MG/ML 1 ML (4 MG) ONE (12:30)
[2019-12-23] MEDS ORDERED: Iohexol 180 (CONTRAST) 10 ML SDV IV ONE ×2 (13:00→13:51)
[2019-12-23] MEDS ORDERED: Ondansetron INJ* 2 MG/ML VIAL IV PRN (14:24)
[2019-12-23] MEDS ORDERED: fentaNYL* 50 MCG/ML 2 ML VIAL (100 MCG VIAL) IV PRN (14:24)
[2019-12-23] MEDS ORDERED: Naloxone* 0.4 MG/ML 1 ML VIAL IV PRN (14:24)
--- NOTE | 2019-12-23 15:03 | OP ---
CC: Dr. Roldan * DATE OF OPERATION: 12/23/19 - ROOM #436 DATE OF : 46 SURGEON: Bautista Ríos MD ANESTHESIOLOGIST: Dr. Murphy. ANESTHESIA: General. PRE-OP DIAGNOSES: 1. Left hydronephrosis. 2. Obstructing calculi, left proximal ureter. POST-OP DIAGNOSES: 1. Left hydronephrosis. 2. Obstructing calculi, left proximal ureter. OPERATIVE PROCEDURE: Cystoscopy, left retrograde pyelogram, left ureteroscopy and stone manipulation, left pyeloscopy, and left stent insertion. COMPLICATIONS: None. STENT USED: 8-Romanian stent, left ureter. POSTOPERATIVE CONDITION: Stable. OPERATIVE FINDINGS: Complete obstruction, left proximal ureter secondary to multiple large calculi. INDICATIONS: Padma Sparrow is a 69-year-old lady with a history of recurrent renal and ureteral calculi. She had presented to the emergency department last night and was noted to have obstructing left proximal ureteral calculi in addition to a urinary tract infection. She is now being brought in for urgent left stent insertion to be followed at some point in the future by lithotripsy as an outpatient once the infection is cleared. DESCRIPTION OF PROCEDURE: After induction of general anesthesia, the patient was placed in dorsal lithotomy position. Sequential compression devices were in place and functioning. Initial cystoscopy revealed cloudy residual urine in the bladder with multiple tiny soft bladder calculi, which were irrigated out. A guidewire was introduced into the left ureter. Initial retrograde pyelogram revealed complete obstruction at the level of the proximal ureter with no migration of contrast above that. Multiple initial attempts to place a hydrophilic guidewire and Glidewire were unsuccessful and I noted extravasation with injection of contrast. At this point, I elected to go ahead and proceed with an ureteroscopy as the only other alternative would have been to consider percutaneous nephrostomy. A 6-Romanian semi-rigid ureteroscope was introduced and advanced into the ureter. The entire distal and mid ureter was carefully visualized and negotiated, and in the upper ureter I could then visualize the distal most obstructing calculus. This was carefully manipulated proximally and once this was done, I could advance the wire into the proper location of the renal pelvis. I was able to follow the wire into the renal pelvis and pyeloscopy was performed. It appeared that there were 2 or 3 calculi in the upper ureter, all of which were manipulated into the kidney. Cloudy residual urine was noted in the renal pelvis and the calculi were now noted to be in the renal pelvis. Since the patient has an associated infection, I did not elect to proceed with laser lithotripsy at the present time. An 8-Romanian [place] stent was introduced and positioned under fluoroscopy with good proximal and distal positioning obtained. A Mcqueen catheter was placed for temporary bladder drainage. The patient tolerated the procedure satisfactorily and was transferred back to the recovery area in stable condition. The plan is to bring the patient back some time in the few weeks as an outpatient for lithotripsy. [id number]/[facility] #: [id number] AMY
--- NOTE | 2019-12-23 16:08 | PN ---
Subjective Date of Service: 12/23/19 Interval History: HD2 on 12/22 69 F with PMH of Alzheimer's dementia, HTN, recurrent nephrolithiasis presented with fever and generalized weakness. FOUnd to have multiple nephrolitihiasis with left PUJ obstruction. S/p cystoscopy and stent placement on 12/22 OVernight: admitted Patient seen and examined at bedside. Patient is pleasantly confused. She is not able to provide good history but at present denies any discomfort and pain. patient is using 2 L of oxygen. Objective Active Medications: Acetaminophen (Tylenol Tab*) 650 mg PO Q4H PRN PRN Reason: PAIN-MILD/TEMP >/= 100.4 Amlodipine Besylate (Norvasc Tab*) 5 mg PO QPM [facility] Atorvastatin Calcium (Lipitor*) 5 mg PO QPM [facility] Donepezil HCl (Aricept Tab*) 5 mg PO QPM [facility] Heparin Sodium (Porcine) (Heparin Vial(*)) 5,000 units SUBCUT Q8HR [facility] Last Admin: 12/23/19 14:14 Dose: Not Given Sodium Chloride (Ns 0.9% 1000 Ml) 1,000 mls @ 75 mls/hr IV PER RATE [facility] Last Admin: 12/23/19 02:09 Dose: 75 mls/hr Ceftriaxone Sodium 1 gm/ (Sodium Chloride) 50 mls @ 100 mls/hr IVPB Q24H [facility] Vital Signs - 8 hr 12/23/19 12/23/19 12/23/19 08:03 08:25 14:16 Temperature 98.7 F 99.1 F 98.8 F Pulse Rate 94 Respiratory 20 16 Rate Blood Pressure 141/53 (mmHg) O2 Sat by Pulse 99 Oximetry 12/23/19 12/23/19 12/23/19 14:17 14:18 14:20 Temperature Pulse Rate 74 72 74 Respiratory 16 15 Rate Blood Pressure 119/61 114/70 (mmHg) O2 Sat by Pulse 100 100 100 Oximetry 12/23/19 12/23/19 12/23/19 14:25 14:30 14:35 Temperature Pulse Rate 75 75 70 Respiratory 15 15 14 Rate Blood Pressure 116/68 121/67 135/71 (mmHg) O2 Sat by Pulse 100 94 98 Oximetry 12/23/19 12/23/19 12/23/19 14:45 15:25 15:37 Temperature 98.8 F Pulse Rate 66 69 Respiratory 14 17 Rate Blood Pressure 131/69 138/68 (mmHg) O2 Sat by Pulse 96 94 94 Oximetry Oxygen Devices in Use Now: Simple Face Mask Exam: Patient is lying on a bed in supine position and is not in acute dstress. HEENT: Normocephalic and atraumatic. Sclera anicteric. EOMI. PERRLA. Neck: No lymphadenopathy and enlarged thyroid. NO JVD elevation. Lungs: Good respiratory effort and chest expansion. Clear with no added sound. Heart: Normal in rate and rhythm. S1/S2 heard with no murmur, rubs or gallops. Abdomen: Soft, nondistended and tenderness present on suprapubic and left lower quadrant. No CVA tenderness. Extremities; No swelling, cyanosis or clubbing Neuro: Alert, not oriented but coperative. CN intact. Motor nomral and sensation intact. Result Diagrams: 12/22/19 21:10 12/22/19 21:10 Assess/Plan/Problems-Billing Assessment: 69 F with PMH of Alzheimer's dementia, HTN, recurrent nephrolithiasis presented with fever and generalized weakness. FOUnd to have multiple nephrolitihiasis with left PUJ obstruction. S/p cystoscopy and stent placement on 12/22. On ceftriaxone(started on 12/21) - Patient Problems (1) UTI (urinary tract infection) Current Visit: Yes Status: Acute Comment: -Patient has history of fever and weakness and has suprapubic tenderness -Abnormal urinalysis; pending culture -elevated WBC and CRP -No e/o pyelonephritis -ON iv ceftriaxone(from 12/22) -received genta and zosyn on 12/21 (2) Nephrolithiasis Current Visit: Yes Status: Acute Code(s): N20.0 - CALCULUS OF KIDNEY SNOMED Code(s): 76549677 Comment: -Mulitple nephrolithisias on CT with PUJ obstruction -s/p cystoscopy, left retrograde pyelogram with stent placement and stone manipulation on 12/22 -Did not do laser lithotripsy because of infection; can be done later in weeks after infection subsides as an outpt -Appreciate Dr. Ríos input -On iV abx (3) Hypertension Current Visit: No Status: Acute Code(s): I10 - ESSENTIAL (PRIMARY) HYPERTENSION SNOMED Code(s): 16578561 Comment: - Normotensive with SBP 110-140 - Continue amlodipine (4) Alzheimers disease Current Visit: No Status: Chronic Priority: High Code(s): G30.9 - ALZHEIMER'S DISEASE, UNSPECIFIED; F02.80 - DEMENTIA IN OTH DISEASES CLASSD ELSWHR W/O BEHAVRL DISTURB SNOMED Code(s): 18655576 Comment: - She is pleasantly confused -On baseline, only alert to herself- but pt is nt able to tell her name; this could because of infection -On namenda and aricept; namenda is NF so only on aricept currently (5) DVT prophylaxis Current Visit: No Status: Acute Priority: High Code(s): PJQ1774 - SNOMED Code(s): 582593926 Comment: - Heparin SQ (6) Full code status Current Visit: No Status: Acute Priority: High Code(s): Z78.9 - OTHER SPECIFIED HEALTH STATUS SNOMED Code(s): 277079140 Status and Disposition: Obv Dc when medically stable Attending: Caitlin Herring Attestation Documenting Resident: Fidelina Supervising Physician: Nevaeh Attending/Supervising Physician Comment: Obstructing stones encountered upon cystoscopy this morning, s/p ureteral stenting. Continue ceftriaxone while awaiting culture data. When we have culture data, she can be discharged on oral antibiotics with close outpatient urology follow up. Attestation: This service has been performed in part by a resident under the direction of a teaching physician.Nevaeh Heath, performed the service, or was physically present during the critical, or waller portions of the service, furnished by the resident. I participated in the management of the patient.
[2019-12-23] MEDS ORDERED: amLODIPine TAB* 5 MG PO SCH (18:00)
[2019-12-23] MEDS ORDERED: Donepezil TAB* 5 MG PO SCH (18:00)
[2019-12-23] MEDS ORDERED: Atorvastatin* 10 MG TAB PO SCH (18:00)
[2019-12-24] MEDS: Heparin VIAL(*) 5000 UNITS/ML VIAL (FIVE THOUSAND) SUBCUT SCH (05:06)
[2019-12-24 05:44] LABS: ABS Lymphocytes 0.8 10^3/ul (1.0-4.8); ABS Monocytes 0.6 10^3/ul (0-0.8); ABS Neutrophils 6.3 10^3/ul (1.5-7.7); Hematocrit 36 % (35-47); Hemoglobin 12.3 g/dL (12.0-16.0); Lymphocyte % 10.6 %; Mean Corpuscular HGB Conc 34 g/dL (31-36); Mean Corpuscular Hemoglobin 30 pg (27-31); Mean Corpuscular Volume 88 fL (80-97); Mean Platelet Volume 8.5 fL (7.4-10.4); Platelet Count 117 10^3/uL (150-450); Red Blood Count 4.11 10^6 /uL (3.70-4.87); Red Cell Distribution Width 14 % (10-15); White Blood Count 7.6 10^3/uL (3.5-10.8)
[2019-12-24 06:01] LABS: BUN/Creatinine Ratio 19.5 (8-20); Calcium 8.9 mg/dL (8.6-10.3); EGFR African American 77.7 (>60); EGFR Non-African American 64.2 (>60); Potassium 3.7 mmol/L (3.5-5.0)
--- NOTE | 2019-12-24 07:39 | PN ---
Subjective Date of Service: 12/24/19 Interval History: Ms. Pope is pleasantly confused but denies any complaint. Objective Active Medications: Acetaminophen (Tylenol Tab*) 650 mg PO Q4H PRN Amlodipine Besylate (Norvasc Tab*) 5 mg PO QPM [facility] Atorvastatin Calcium (Lipitor*) 5 mg PO QPM [facility] Donepezil HCl (Aricept Tab*) 5 mg PO QPM [facility] Heparin Sodium (Porcine) (Heparin Vial(*)) 5,000 units SUBCUT Q8HR [facility] Sodium Chloride (Ns 0.9% 1000 Ml) 1,000 mls @ 75 mls/hr IV PER RATE [facility] Ceftriaxone Sodium 1 gm/ (Sodium Chloride) 50 mls @ 100 mls/hr IVPB Q24H [facility] Vital Signs: Temp Pulse Resp BP Pulse Ox 98.4 F 67 18 155/84 93 12/24/19 03:08 12/24/19 03:08 12/24/19 03:08 12/24/19 03:08 12/24/19 03:08 Oxygen Devices in Use Now: None Appearance: Female sitting up in chair in NAD Eyes: No Scleral Icterus Ears/Nose/Mouth/Throat: Mucous Membranes Moist Neck: Trachea Midline Respiratory: Symmetrical Chest Expansion and Respiratory Effort, Clear to Auscultation Cardiovascular: NL Sounds; No Murmurs; No JVD, No Edema Abdominal: NL Sounds; No Tenderness; No Distention Extremities: No Edema Skin: No Rash or Ulcers Neurological: NL Muscle Strength and Tone, - - Alert and oriented to self only Result Diagrams: 12/24/19 05:20 12/24/19 05:20 Microbiology and Other Data: . Assess/Plan/Problems-Billing Assessment: 69 F with PMH of Alzheimer's dementia, HTN, recurrent nephrolithiasis presented with fever and generalized weakness. Found to have multiple nephrolitihiasis with left PUJ obstruction. S/p cystoscopy and stent placement on 12/22. On ceftriaxone(started on 12/21) - Patient Problems (1) Nephrolithiasis Comment: - Nephrolithisias on CT with PUJ obstruction - s/p cystoscopy, left retrograde pyelogram with stent placement and stone manipulation on 12/22 - Did not do laser lithotripsy because of infection; can be done later in weeks after infection subsides as an outpt - Appreciate Dr. Ríos input (2) UTI (urinary tract infection) Comment: - Plan to switch to bactrim x 5 days - Ecoli found on culture - Patient has history of fever and weakness and has suprapubic tenderness, elevated WBC and CRP - No e/o pyelonephritis - On iv ceftriaxone (from 12/22) - Received genta and zosyn on 12/21 (3) Hypertension Comment: - Normotensive with SBP 110-140 - Continue amlodipine (4) Alzheimers disease Comment: - Continue aricept (5) Hyperlipemia Comment: - Continue simvastatin (6) DVT prophylaxis Comment: - Heparin SQ (7) Full code status Comment: Status and Disposition: Obv, discharge to home
[2019-12-24 11:33] VITALS: BP 144/90
--- NOTE | 2019-12-24 12:03 | DS ---
CC: Dr. Garcia; Dr. Ríos * HOSPITAL MEDICINE DISCHARGE SUMMARY: DATE OF ADMISSION: 12/23/19 DATE OF DISCHARGE: 12/24/19 PRIMARY CARE PROVIDER: Dr. Garcia. UROLOGIST: Dr. Ríos. ATTENDING PHYSICIAN: Dr. Viktoriya De La Rosa * (dictation provided by Tesha Coronel NP ). PRIMARY DIAGNOSIS: Urinary tract infection with nephrolithiasis, status post cystoscopy and ureteral stent placement. SECONDARY DIAGNOSES: 1. Alzheimer. 2. Kidney stones and cystoscopies in the past. 3. Hypertension. 4. Hyperlipidemia. 5. Status post knee replacement. 6. Cholecystectomy. 7. Hysterectomy. MEDICATIONS AT THE TIME OF DISCHARGE: 1. Bactrim DS 800/160 one tab p.o. b.i.d. x7 days. 2. Multivitamin with mineral 1 tab p.o. daily. 3. Glucosamine chondroitin cap 1 cap p.o. q.p.m. 4. Amlodipine 5 mg p.o. q.p.m. 5. Zocor 10 mg q.p.m. 6. Namenda 1 tablet p.o. b.i.d. 7. Meloxicam 1 tab p.o. b.i.d. 8. Losartan 25 mg q.p.m. 9. Premarin 0.3 mg q.p.m. 10. Donepezil 5 mg p.o. q.p.m. 11. Cholecalciferol tab 25 mg p.o. q.p.m. 12. Aspirin 81 mg p.o. daily. HOSPITAL COURSE: Ms. Pope is a 69-year-old female who presented to the hospital on 12/23/19 with concern for fever and generalized weakness. Please see the dictated H and P from Dr. Lynne Roldan for complete details. In brief , the patient reported a fever and generalized weakness, but she has a history of severe Alzheimer and was unable to offer any further information. The patient was found to have urinalysis positive for 3+ leuk esterase and 1+ bacteria. She had a slightly elevated white blood cell count at 12. Her BUN and creatinine were slightly elevated at 28 and 1.39 respectively. Her CRP was 97.53. She had an abdomen and pelvis CT, which showed "mildly obstructing 4, 9 and 8 mm calculi in the left UPJ, bilateral nephrolithiasis, moderate hepatic steatosis, and bilateral inguinal hernias with no strangulation. The patient also of note, had a chest x-ray that showed no active cardiopulmonary disease and her flu swab was negative. Ms. Pope was seen in consultation by Dr. Ríos for complete details and I refer you to his documentation for full details. His operative note notes that the patient had cystoscopy with placement of left ureteral stent and this placement was confirmed on abdominal x-ray. Ms. Pope is medically stable for discharge to home. She will be following up with Dr. Ríos in the office. I am asking that her call the office on Thursday to arrange an appointment. They are experienced in follow up of this issue as it has happened to her several times in the past. DISPOSITION: To home. DIET: Regular. ACTIVITY: As tolerated. FOLLOWUP PLANS: 1. Please follow up with Dr. Ríos regarding this acute inpatient hospitalization. 2. Please follow up with Dr. Garcia per routine after this hospitalization. TIME SPENT: Approximately 60 minutes was spent in the discharge of this patient , more than half that time was spent with the patient at the bedside, reviewing the events leading up to this hospitalization, during the hospitalization, performing the physical examination, and reviewing the plan of care. TESHA CORONEL NP [id number]/[facility] #: [id number] MTDD
== END 2019-12-24 13:00 | disposition home or self-care (01) ==
LOC: ED 20:13 → MEDTELE 12-23 00:29
PROVIDERS: ADMIT Internal Medicine; ATTEND Internal Medicine
DX: N39.0 Urinary tract infection, site not specified (principal); N13.2 Hydronephrosis with renal and ureteral calculous obstruction; R50.9 Fever, unspecified; R53.1 Weakness; G30.9 Alzheimer's disease, unspecified; F02.80 Dementia in other diseases classified elsewhere, unspecified severity, without behavioral disturbance, psychotic disturbance, mood disturbance, and anxiety; I10 Essential (primary) hypertension; K21.9 Gastro-esophageal reflux disease without esophagitis; E78.5 Hyperlipidemia, unspecified; R06.02 Shortness of breath; R11.10 Vomiting, unspecified; Z87.442 Personal history of urinary calculi; Z96.659 Presence of unspecified artificial knee joint; Z79.82 Long term (current) use of aspirin; Z79.899 Other long term (current) drug therapy; Z90.710 Acquired absence of both cervix and uterus; Z88.6 Allergy status to analgesic agent; Z88.2 Allergy status to sulfonamides
CPT/HCPCS: 36415; 71045; 74018; 74176; 74420; 80048; 80053; 81003; 81015; 83605; 85025; 86140; 87040; 87077; 87086; 87186; 96365; 96366; 96372; 99285; A9270-GY; G0378; J0696; J1100; J1580; J1644; J2250; J2405; J2543; J2704; J3010; U0002

== ENCOUNTER 2020-01-16 10:33 | Day surgery (SDC) | payer MEDICARE, BC ==
[~2020-01-16 10:33] MED LIST changes: +Acetaminophen TAB* 325 MG PO ONE; -Acetaminophen TAB* 325 MG PO PRN; -Buffered Lidocaine 0.9% SYRIN* 5 ML/SYR SYRINGE INTRADERM ONE; +Buffered Lidocaine 1% SYRIN* 1 ML/SYRINGE INTRADERM ONE; -DiMENhydriNATE IV* 50 MG/ML VIAL IV PUSH PRN; +Famotidine IV* 10 MG/ML 2 ML (20 mg) IV ONE; -Famotidine IV* 10 MG/ML 2 ML (20 mg) ONE; -HYDROcodone/ACETAMIN 5-325 MG* 1 TAB ONE; -HYDROcodone/ACETAMIN 5-325 MG* 1 TAB PO PRN; +Lactated Ringers 1000 ML Bag* 1,000 ML IV SCH; -Lidocaine 2% PF * 5 ML VIAL ONE; -Naloxone* 0.4 MG/ML 1 ML VIAL IV PRN; -Ondansetron INJ* 2 MG/ML VIAL ONE; -PROCHLORPERAZINE INJ 5 MG/ML 2 ML VIAL IV PRN; -Propofol* 10 MG/ML 20 ML BTL IV PUSH ONE; -cefTRIAXone(*) 2 GM ADDV.VIAL IVPB ONE; -diPHENhydraMINE IV* 50 MG/ML 1 ml VIAL (BENADRYL) IV PRN; -fentaNYL* 50 MCG/ML 2 ML VIAL (100 MCG VIAL) IV PRN; -fentaNYL* 50 MCG/ML 2 ML VIAL (100 MCG VIAL) ONE
[2020-01-16] MEDS ORDERED: Buffered Lidocaine 1% SYRIN* 1 ML/SYRINGE INTRADERM ONE (11:59)
[2020-01-16] MEDS ORDERED: Famotidine IV* 10 MG/ML 2 ML (20 mg) ONE (11:59)
[2020-01-16] MEDS ORDERED: Acetaminophen TAB* 325 MG ONE (11:59)
[2020-01-16] MEDS ORDERED: cefTRIAXone(*) 2 GM ADDV.VIAL IVPB ONE (12:00)
[2020-01-16] MEDS ORDERED: Propofol* 10 MG/ML 20 ML BTL ONE (15:14)
[2020-01-16] MEDS ORDERED: Ondansetron INJ* 2 MG/ML VIAL ONE (15:14)
[2020-01-16] MEDS ORDERED: Lidocaine 2% PF * 5 ML VIAL ONE (15:14)
[2020-01-16] MEDS ORDERED: fentaNYL* 50 MCG/ML 2 ML VIAL (100 MCG VIAL) ONE ×2 (15:18→16:01)
[2020-01-16] MEDS ORDERED: fentaNYL* 50 MCG/ML 2 ML VIAL (100 MCG VIAL) IV PRN (15:31)
[2020-01-16] MEDS ORDERED: Acetaminophen TAB* 325 MG PO PRN (15:31)
[2020-01-16] MEDS ORDERED: DiMENhydriNATE IV* 50 MG/ML VIAL IV PUSH PRN (15:31)
[2020-01-16] MEDS ORDERED: Naloxone* 0.4 MG/ML 1 ML VIAL IV PRN (15:31)
--- NOTE | 2020-01-16 17:48 | OP ---
CC: Dr. Bautista Ríos* OPERATIVE REPORT: DATE OF OPERATION: 01/16/20 - SDS DATE OF : 46 SURGEON: Bautista Ríos MD ANESTHESIOLOGIST: Dr. Rasheed. ANESTHESIA: General. PRE-OP DIAGNOSES: 1. Calculus, left ureter. 2. Left renal calculi. POST-OP DIAGNOSES: 1. Calculus, left ureter. 2. Left renal calculi. OPERATIVE PROCEDURE: 1. Shockwave lithotripsy of calculus, left ureter. 2. Shockwave lithotripsy of left renal calculi. COMPLICATIONS: None. POSTOPERATIVE CONDITION: Stable. INDICATIONS: Padma Pope is a 69-year-old lady who had undergone urgent left stent insertion because of multiple obstructing calculi in the left proximal ureter in addition to which she also has left renal calculi. DESCRIPTION OF PROCEDURE: After induction of general anesthesia, the patient was placed on the lithotripsy table in supine position. Fluoroscopy revealed fairly large calculus in the proximal left ureter adjacent to the stent. Shockwave lithotripsy was commenced at a rate of 90 shocks per minute and periodic imaging revealed good localization and fragmentation and a total of 1200 shocks were administered to this calculus. Next, attention was directed to 2 calculi, which were located within the left kidney and these were also targeted for shockwave lithotripsy under fluoroscopic monitoring with a total of 1200 shocks distributed between these 2 calculi. A total of 2400 shocks were thus used during the procedure. The patient tolerated the procedure satisfactorily and was transferred back to the recovery area in stable condition. [id number]/[facility] #: [id number] [facility]
[2020-01-16 17:52] VITALS: BP 138/66
== END 2020-01-16 17:45 | disposition home or self-care (01) ==
LOC: OR 10:33
PROVIDERS: ATTEND Urology
DX: N20.0 Calculus of kidney (principal); N20.1 Calculus of ureter; I10 Essential (primary) hypertension; G30.9 Alzheimer's disease, unspecified; F02.80 Dementia in other diseases classified elsewhere, unspecified severity, without behavioral disturbance, psychotic disturbance, mood disturbance, and anxiety; Z87.442 Personal history of urinary calculi; E78.5 Hyperlipidemia, unspecified; D72.829 Elevated white blood cell count, unspecified; Z96.659 Presence of unspecified artificial knee joint
CPT/HCPCS: 74018; A9270-GY; J0696; J2405; J2704; J3010

== ENCOUNTER 2020-02-02 11:03 | Emergency (ER) | payer MEDICARE, BC ==
[2020-02-02] MEDS ORDERED: NS 0.9% 1000 ml BAG 1,000 ML IV ONE (11:39)
[2020-02-02 12:17] LABS: ABS Lymphocytes 0.9 10^3/ul (1.0-4.8); ABS Monocytes 0.5 10^3/ul (0-0.8); Eosinophil % 0.1 %; Hematocrit 39 % (35-47); Hemoglobin 13.4 g/dL (12.0-16.0); Lymphocyte % 9.7 %; Mean Corpuscular HGB Conc 34 g/dL (31-36); Mean Corpuscular Hemoglobin 30 pg (27-31); Mean Corpuscular Volume 87 fL (80-97); Mean Platelet Volume 8.7 fL (7.4-10.4); Platelet Count 171 10^3/uL (150-450); Red Blood Count 4.55 10^6 /uL (3.70-4.87); Red Cell Distribution Width 14 % (10-15); White Blood Count 9.5 10^3/uL (3.5-10.8)
[2020-02-02 12:36] LABS: BUN/Creatinine Ratio 18.8 (8-20); EGFR Non-African American 45.5 (>60); Potassium 3.6 mmol/L (3.5-5.0)
[2020-02-02 12:37] LABS: Albumin 3.9 g/dL (3.2-5.2); Albumin/Globulin Ratio 1.3 (1-3); C Reactive Protein 53.05 mg/L (<8.01); Calcium 9.2 mg/dL (8.6-10.3); Total Bilirubin 1.4 mg/dL (0.2-1.0); Total Protein 6.9 g/dL (6.4-8.9)
[2020-02-02 12:42] LABS: Urine Appearance Turbid; Urine Bacteria Absent (Absent); Urine Bilirubin Negative (Negative); Urine Blood 3+ (Negative); Urine Glucose Negative (Negative); Urine Ketones Negative (Negative); Urine Nitrite Negative (Negative); Urine Protein 2+(100 mg/dL) (Negative); Urine Red Blood Cell 3+(>10/hpf) (Absent); Urine Specific Gravity 1.016 (1.010-1.030); Urine Urobilinogen Negative (Negative); Urine White Blood Cell 3+(>20/hpf) (Absent)
[2020-02-02 12:44] LABS: Urine Color Red
[2020-02-02] MEDS ORDERED: cefTRIAXone ADVAN VIAL 1 GM in NS 0.9% 50 ML 50 ML IVPB ONE (13:18)
[2020-02-02 15:13] VITALS: BP 137/87
[2020-02-04 14:55] LABS: Hepatitis B Surface Antigen Nonreactive (Nonreactive)
[2020-02-04 15:05] LABS: HIV 4th Generation Nonreactive (Nonreactive)
[2020-02-04 15:12] LABS: Hepatitis B Surface Ab Not Immune (Immune)
[2020-02-04 15:44] LABS: Hepatitis C Antibody Negative (Negative)
== END 2020-02-02 15:27 | disposition short-term general hospital (02) ==
LOC: ED 11:03

== ENCOUNTER 2020-02-27 09:03 | Inpatient (IN) ==
[2020-02-27] MEDS ORDERED: cefTRIAXone ADVAN VIAL 1 GM in NS 0.9% 50 ML 50 ML IVPB ONE (09:57)
[2020-02-27] MEDS ORDERED: NS 0.9% 1000 ml BAG 1,000 ML IV ONE ×2 (09:58→18:29)
[2020-02-27 10:18] LABS: Urine Bacteria Absent (Absent); Urine Red Blood Cell 3+(>10/hpf) (Absent); Urine White Blood Cell 3+(>20/hpf) (Absent)
[2020-02-27 10:21] LABS: Urine Appearance Cloudy; Urine Color Red
[2020-02-27 10:22] LABS: ABS Lymphocytes 0.5 10^3/ul (1.0-4.8); ABS Monocytes 0.4 10^3/ul (0-0.8); Hematocrit 36 % (35-47); Hemoglobin 12.1 g/dL (12.0-16.0); Lymphocyte % 6.7 %; Mean Corpuscular HGB Conc 34 g/dL (31-36); Mean Corpuscular Hemoglobin 29 pg (27-31); Mean Corpuscular Volume 86 fL (80-97); Nucleated Red Blood Cells % 0.1; Red Blood Count 4.16 10^6 /uL (3.70-4.87); Red Cell Distribution Width 14 % (10-15); White Blood Count 8.2 10^3/uL (3.5-10.8)
[2020-02-27 10:23] LABS: Activated Partial Thrombo Time 30.1 seconds (26.0-38.0); Fibrinogen 493.9 mg/dL (110.8-404.3); INR 1.22 (0.82-1.09)
[2020-02-27 10:31] LABS: Albumin 3.9 g/dL (3.2-5.2); Albumin/Globulin Ratio 1.3 (1-3); C Reactive Protein 84.44 mg/L (<8.01); Calcium 9.3 mg/dL (8.6-10.3); EGFR African American 45.9 (>60); EGFR Non-African American 37.9 (>60); Globulin 3.1 g/dL (2-4); Potassium 3.9 mmol/L (3.5-5.0); Total Bilirubin 1.3 mg/dL (0.2-1.0)
[2020-02-27 10:33] LABS: Troponin I 0.01 ng/mL (<0.03)
[2020-02-27 11:10] LABS: Platelet Count Platelets clumped. 10^3/uL (150-450)
[2020-02-27] MEDS ORDERED: Linezolid 600 MG IVPREMIX(*) 600 MG/300 ML BAG IVPB ONE (12:00)
[2020-02-27] MEDS ORDERED: NS 0.9% IVPB SCH (17:00)
[2020-02-27] MEDS ORDERED: TIGECYCLINE IVPB SCH (17:00)
[2020-02-27 17:04] LABS: Erythrocyte Sed Rate 51 mm/Hr (0-29)
[2020-02-27] MEDS: Heparin 5000 UNITS/ML VIAL(*) 1 ml vial SUBCUT SCH (21:49)
[2020-02-28] MEDS: Linezolid 600 MG IVPREMIX(*) 600 MG/300 ML BAG IVPB SCH ×2 (00:22→13:18)
[2020-02-28] MEDS: Heparin 5000 UNITS/ML VIAL(*) 1 ml vial SUBCUT SCH (05:59)
[2020-02-28] MEDS: NS 0.9% 1000 ml BAG 1,000 ML IV SCH ×2 (05:59→20:49)
[2020-02-28 07:52] LABS: BUN/Creatinine Ratio 16.4 (8-20); Calcium 8.2 mg/dL (8.6-10.3); EGFR African American 59.1 (>60); EGFR Non-African American 48.8 (>60); Potassium 3.1 mmol/L (3.5-5.0)
[2020-02-28 08:27] LABS: Hematocrit 30 % (35-47); Hemoglobin 10.3 g/dL (12.0-16.0); Mean Corpuscular HGB Conc 34 g/dL (31-36); Mean Corpuscular Hemoglobin 29 pg (27-31); Mean Corpuscular Volume 86 fL (80-97); Red Cell Distribution Width 14 % (10-15); White Blood Count 5.3 10^3/uL (3.5-10.8)
[2020-02-28] MEDS ORDERED: cefTRIAXone ADVAN VIAL 1 GM in NS 0.9% 50 ML 50 ML IVPB SCH (10:00)
[2020-02-28 10:26] LABS: ABS Monocytes 0.6 10^3/ul (0-0.8); Eosinophil % 0.9 %; Mean Platelet Volume 7.2 fL (7.4-10.4); Platelet Count 61 10^3/uL (150-450)
[2020-02-29] MEDS ORDERED: Furosemide 20 mg/2 ml IV VIAL IV SCH
[2020-02-29] MEDS ORDERED: Lidocaine 2% PF 5 ML VIAL IV SCH
[2020-02-29] MEDS ORDERED: Propofol 10 MG/ML 20 ML BTL IV SCH
[2020-02-29] MEDS ORDERED: Ondansetron 4 mg VIAL 2 MG/ML 2 ml VIAL IV SCH
[2020-02-29] MEDS ORDERED: Midazolam 5 mg/5 ml VIAL 1 mg/ml 5 ml VIAL (5 mg) IV SLOW PU SCH
[2020-02-29] MEDS ORDERED: Dexamethasone IV 4 MG/ML VIAL 1 ml VIAL IV SLOW PU SCH
[2020-02-29] MEDS ORDERED: fentaNYL 100 mcg/2 ml 50 MCG/ML VIAL IV SCH ×2
[2020-02-29] MEDS ORDERED: Ketamine HCL 50 mg/ml 10 ml VIAL (500 MG) IV SCH
[2020-02-29] MEDS: Linezolid 600 MG IVPREMIX(*) 600 MG/300 ML BAG IVPB SCH (00:18)
[2020-02-29 09:27] LABS: ABS Eosinophils 0.1 10^3/ul (0-0.6); ABS Lymphocytes 0.9 10^3/ul (1.0-4.8); ABS Monocytes 0.6 10^3/ul (0-0.8); Eosinophil % 1.7 %; Hematocrit 32 % (35-47); Hemoglobin 10.7 g/dL (12.0-16.0); Lymphocyte % 18.7 %; Mean Corpuscular HGB Conc 34 g/dL (31-36); Mean Corpuscular Hemoglobin 29 pg (27-31); Mean Corpuscular Volume 85 fL (80-97); Mean Platelet Volume 7.2 fL (7.4-10.4); Platelet Count 76 10^3/uL (150-450); Red Cell Distribution Width 14 % (10-15); White Blood Count 4.9 10^3/uL (3.5-10.8)
[2020-02-29 09:28] LABS: C Reactive Protein 130.14 mg/L (<8.01); Calcium 8.6 mg/dL (8.6-10.3); EGFR African American 72.6 (>60); Potassium 3.1 mmol/L (3.5-5.0)
[2020-02-29] MEDS: Cefepime 1 GM in Dextrose(*) 1 GM/50 ML BAG IV SCH ×2 (10:13→22:40)
[2020-02-29] MEDS ORDERED: fentaNYL 100 mcg/2 ml 50 MCG/ML VIAL IV PRN (15:19)
[2020-02-29] MEDS ORDERED: Naloxone 0.4 mg VIAL 0.4 mg/ml 1 ml VIAL IV PRN (15:19)
[2020-02-29] MEDS ORDERED: Ondansetron 4 mg VIAL 2 MG/ML 2 ml VIAL IV PRN (15:19)
[2020-02-29] MEDS: KCL 20 MEQ/100 ML IVPREMIX 20 MEQ/100 ML BAG IV SCH ×2 (20:09→22:53)
[2020-03-01 06:18] LABS: Hematocrit 32 % (35-47); Hemoglobin 10.9 g/dL (12.0-16.0); Mean Corpuscular HGB Conc 34 g/dL (31-36); Mean Corpuscular Hemoglobin 29 pg (27-31); Mean Corpuscular Volume 85 fL (80-97); Mean Platelet Volume 7.4 fL (7.4-10.4); Platelet Count 101 10^3/uL (150-450); Red Blood Count 3.73 10^6 /uL (3.70-4.87); Red Cell Distribution Width 14 % (10-15); White Blood Count 5.8 10^3/uL (3.5-10.8)
[2020-03-01 06:30] LABS: BUN/Creatinine Ratio 15.3 (8-20); Calcium 8.4 mg/dL (8.6-10.3); EGFR African American 67.5 (>60); EGFR Non-African American 55.8 (>60); Potassium 3.5 mmol/L (3.5-5.0)
[2020-03-01 07:05] LABS: TSH (Thyroid Stimulating Horm) 0.47 mcIU/mL (0.34-5.60)
[2020-03-01 07:07] LABS: Free T4 1.5 ng/dL (0.61-1.12)
[2020-03-01] MEDS: Cefepime 1 GM in Dextrose(*) 1 GM/50 ML BAG IV SCH (10:14)
[2020-03-01 14:11] LABS: C Reactive Protein 70.79 mg/L (<8.01)
[2020-03-01 15:43] VITALS: BP 146/65
== END 2020-03-01 17:10 | disposition home or self-care (01) | DRG 661 ==
LOC: MEDTELE 09:03 → ED 09:03
PROVIDERS: ADMIT Nurse Practitioner; ATTEND Hospitalist

== ENCOUNTER 2020-05-13 15:04 | Inpatient (IN) ==
[2020-05-13] MEDS ORDERED: NS 0.9% 1000 ml BAG 1,000 ML IV ONE ×2 (15:17→19:37)
[2020-05-13 15:49] LABS: ABS Monocytes 0.7 10^3/ul (0-0.8); ABS Neutrophils 7.7 10^3/ul (1.5-7.7); Eosinophil % 0.2 %; Hematocrit 39 % (35-47); Hemoglobin 13.1 g/dL (12.0-16.0); Lymphocyte % 10.6 %; Mean Corpuscular HGB Conc 34 g/dL (31-36); Mean Corpuscular Hemoglobin 28 pg (27-31); Mean Corpuscular Volume 83 fL (80-97); Mean Platelet Volume 7.8 fL (7.4-10.4); Platelet Count 290 10^3/uL (150-450); Red Blood Count 4.68 10^6 /uL (3.70-4.87); Red Cell Distribution Width 15 % (10-15); White Blood Count 9.4 10^3/uL (3.5-10.8)
[2020-05-13 15:55] LABS: Activated Partial Thrombo Time 37.3 seconds (26.0-38.0); INR 1.65 (0.82-1.09)
[2020-05-13 16:13] LABS: Troponin I 0.06 ng/mL (<0.03)
[2020-05-13 16:19] LABS: Albumin 3.7 g/dL (3.2-5.2); Anion Gap 10 mmol/L (2-11); CO2 Carbon Dioxide 28 mmol/L (22-32); Calcium 9.7 mg/dL (8.6-10.3); Chloride 100 mmol/L (101-111); Potassium 4.1 mmol/L (3.5-5.0); Sodium 138 mmol/L (135-145)
[2020-05-13 16:25] LABS: ALT 39 U/L (7-52); AST 28 U/L (13-39); Alkaline Phosphatase 46 U/L (34-104); BUN/Creatinine Ratio 23.2 (8-20); Blood Urea Nitrogen 26 mg/dL (6-24); C Reactive Protein 30.14 mg/L (<8.01); EGFR African American 57.9 (>60); EGFR Non-African American 47.8 (>60); Globulin 3.8 g/dL (2-4); Glucose 170 mg/dL (70-100); Total Protein 7.5 g/dL (6.4-8.9)
[2020-05-13] MEDS ORDERED: Iodixanol (CONTRAST) 320 MG/ML 100 ML SDV IV ONE (16:49)
[2020-05-13 16:55] LABS: Urine Appearance Cloudy; Urine Bilirubin Negative (Negative); Urine Blood 2+ (Negative); Urine Color Yellow; Urine Glucose Negative (Negative); Urine Ketones Negative (Negative); Urine Nitrite Negative (Negative); Urine Protein Negative (Negative); Urine Specific Gravity 1.017 (1.010-1.030); Urine Urobilinogen Negative (Negative)
[2020-05-13 16:59] LABS: Urine Bacteria Absent (Absent); Urine Red Blood Cell 3+(>10/hpf) (Absent); Urine Squamous Epithelial Cell Present (Absent); Urine White Blood Cell 2+(11-20/hpf) (Absent)
[2020-05-13] MEDS ORDERED: Ciprofloxacin 400mg IVPREMIX 400 MG/200 ML BAG IVPB ONE (18:06)
[2020-05-13 18:38] LABS: Troponin I 0.05 ng/mL (<0.03)
[2020-05-13] MEDS ORDERED: Ondansetron 4 mg VIAL 2 MG/ML 2 ml VIAL IV PRN (19:37)
[2020-05-13] MEDS ORDERED: NS 0.9% 1000 ml BAG 1,000 ML IV SCH (19:45)
[2020-05-13] MEDS: Meropenem 1 GM PREMIX(*) 1 GM/50 ML BAG IV SCH (20:24)
[2020-05-14] MEDS ORDERED: NS 0.9% 1000 ml BAG 1,000 ML IV SCH (04:20)
[2020-05-14] MEDS: Meropenem 1 GM PREMIX(*) 1 GM/50 ML BAG IV SCH (04:24)
[2020-05-14 07:03] LABS: ABS Eosinophils 0.1 10^3/ul (0-0.6); ABS Lymphocytes 1.5 10^3/ul (1.0-4.8); ABS Monocytes 0.6 10^3/ul (0-0.8); ABS Neutrophils 5.6 10^3/ul (1.5-7.7); Eosinophil % 0.9 %; Hematocrit 36 % (35-47); Lymphocyte % 18.8 %; Mean Corpuscular HGB Conc 34 g/dL (31-36); Mean Corpuscular Hemoglobin 28 pg (27-31); Mean Corpuscular Volume 84 fL (80-97); Mean Platelet Volume 7.5 fL (7.4-10.4); Platelet Count 249 10^3/uL (150-450); Red Blood Count 4.28 10^6 /uL (3.70-4.87); Red Cell Distribution Width 15 % (10-15); White Blood Count 7.8 10^3/uL (3.5-10.8)
[2020-05-14 07:08] LABS: INR 1.91 (0.82-1.09)
[2020-05-14 07:22] LABS: BUN/Creatinine Ratio 22.9 (8-20); Calcium 9.1 mg/dL (8.6-10.3); EGFR African American 69.1 (>60); EGFR Non-African American 57.1 (>60); Potassium 3.8 mmol/L (3.5-5.0)
[2020-05-14] MEDS: CMC:Simvastatin 10 mg TAB (NF) PO SCH (07:34)
[2020-05-14] MEDS ORDERED: Zosyn per Pharmacy NOTE FOLLOW UP SCH (11:00)
[2020-05-14] MEDS ORDERED: ZOSYN 3.375 GM x ONE DOSE over 30 miuntes IV (11:30)
[2020-05-14] MEDS: ZOSYN 3.375 GM Q8H per EXTENDED INFUSION IV SCH ×2 (14:54→22:45)
[2020-05-14 20:14] LABS: C Reactive Protein 53.97 mg/L (<8.01)
[2020-05-15] MEDS: CMC:Simvastatin 10 mg TAB (NF) PO SCH (08:05)
[2020-05-15] MEDS: ZOSYN 3.375 GM Q8H per EXTENDED INFUSION IV SCH ×2 (08:05→17:46)
[2020-05-16] MEDS: CMC:Simvastatin 10 mg TAB (NF) PO SCH (08:32)
[2020-05-16 12:22] VITALS: BP 130/75
== END 2020-05-16 14:19 | DRG 871 ==
LOC: ED 15:04 → MEDTELE 20:00
PROVIDERS: ADMIT Internal Medicine; ATTEND Internal Medicine

== ENCOUNTER 2020-06-14 16:23 | Inpatient (IN) ==
[2020-06-14] MEDS ORDERED: NS 0.9% 1000 ml BAG 1,000 ML IV ONE (16:38)
[2020-06-14 16:52] LABS: ABS Eosinophils 0.1 10^3/ul (0-0.6); ABS Lymphocytes 1.9 10^3/ul (1.0-4.8); ABS Monocytes 0.6 10^3/ul (0-0.8); ABS Neutrophils 6.1 10^3/ul (1.5-7.7); Eosinophil % 1.1 %; Hematocrit 50 % (35-47); Hemoglobin 15.3 g/dL (12.0-16.0); Lymphocyte % 21.4 %; Mean Corpuscular HGB Conc 31 g/dL (31-36); Mean Corpuscular Hemoglobin 26 pg (27-31); Mean Corpuscular Volume 86 fL (80-97); Mean Platelet Volume 11.1 fL (7.4-10.4); Platelet Count 108 10^3/uL (150-450); Red Blood Count 5.81 10^6 /uL (3.70-4.87); Red Cell Distribution Width 17 % (10-15); White Blood Count 8.7 10^3/uL (3.5-10.8)
[2020-06-14 17:16] LABS: Troponin I 0.05 ng/mL (<0.03)
[2020-06-14 17:17] LABS: ALT 107 U/L (7-52); AST 44 U/L (13-39); Albumin 3.9 g/dL (3.2-5.2); Albumin/Globulin Ratio 1.2 (1-3); Alkaline Phosphatase 54 U/L (34-104); BUN/Creatinine Ratio 39.7 (8-20); Blood Urea Nitrogen 94 mg/dL (6-24); CO2 Carbon Dioxide 23 mmol/L (22-32); Creatine Kinase 59 U/L (10-223); EGFR African American 24.4 (>60); EGFR Non-African American 20.1 (>60); Globulin 3.3 g/dL (2-4); Glucose 120 mg/dL (70-100); Magnesium 2.5 mg/dL (1.9-2.7); Potassium 4.2 mmol/L (3.5-5.0); Total Protein 7.2 g/dL (6.4-8.9)
[2020-06-14 17:22] LABS: Anion Gap 11 mmol/L (2-11); Chloride 134 mmol/L (101-111); Sodium 168 mmol/L (135-145)
[2020-06-14 17:57] LABS: TSH Ultra Thyroid Stim Horm 0.87 mcIU/mL (0.34-5.60)
[2020-06-14] MEDS ORDERED: NS 0.9% 500 ml BAG 500 ML IV ONE (18:04)
[2020-06-14] MEDS ORDERED: Heparin DRIP 25,000 UNITS BAG 25,000 UNITS/500 ML BAG IV SCH (18:15)
[2020-06-14] MEDS: NS 0.45% 1000 ml BAG 1,000 ML IV SCH (18:29)
[2020-06-14 18:52] LABS: Urine Appearance Turbid; Urine Bilirubin Negative (Negative); Urine Blood 3+ (Negative); Urine Color Amber; Urine Glucose Negative (Negative); Urine Ketones Negative (Negative); Urine Nitrite Negative (Negative); Urine Protein 1+(30 mg/dL) (Negative); Urine Specific Gravity 1.021 (1.010-1.030); Urine Urobilinogen Negative (Negative)
[2020-06-14] MEDS ORDERED: Heparin 5000 UNITS/ML 1 mL VIAL IV SCH (19:00)
[2020-06-14 19:05] LABS: Urine Bacteria 3+ (Absent); Urine Red Blood Cell 3+(>10/hpf) (Absent); Urine Squamous Epithelial Cell Present (Absent); Urine Transitional Epithelial Present (Absent); Urine White Blood Cell 3+(>20/hpf) (Absent)
[2020-06-14 19:26] LABS: EGFR African American 26.5 (>60); EGFR Non-African American 21.9 (>60)
[2020-06-14 20:23] LABS: ABS Eosinophils 0.1 10^3/ul (0-0.6); ABS Lymphocytes 1.7 10^3/ul (1.0-4.8); ABS Monocytes 0.5 10^3/ul (0-0.8); ABS Neutrophils 5.7 10^3/ul (1.5-7.7); Eosinophil % 1.3 %; Hematocrit 48 % (35-47); Hemoglobin 14.9 g/dL (12.0-16.0); Lymphocyte % 21.5 %; Mean Corpuscular HGB Conc 31 g/dL (31-36); Mean Corpuscular Hemoglobin 26 pg (27-31); Mean Corpuscular Volume 85 fL (80-97); Mean Platelet Volume 10.5 fL (7.4-10.4); Nucleated Red Blood Cells % 0.1; Platelet Count 112 10^3/uL (150-450); Red Blood Count 5.65 10^6 /uL (3.70-4.87); Red Cell Distribution Width 17 % (10-15)
[2020-06-14] MEDS: Linezolid 600 MG IVPREMIX(*) 600 MG/300 ML BAG IVPB SCH (21:12)
[2020-06-14 22:30] LABS: Calcium 9.9 mg/dL (8.6-10.3); EGFR African American 22.9 (>60); EGFR Non-African American 18.9 (>60); Potassium 3.7 mmol/L (3.5-5.0)
[2020-06-15 05:30] LABS: BUN/Creatinine Ratio 36.2 (8-20); Calcium 9.7 mg/dL (8.6-10.3); EGFR African American 25.3 (>60); EGFR Non-African American 20.9 (>60); Potassium 4.6 mmol/L (3.5-5.0)
[2020-06-15] MEDS: NS 0.45% 1000 ml BAG 1,000 ML IV SCH (05:36)
[2020-06-15 05:38] LABS: ABS Eosinophils 0.1 10^3/ul (0-0.6); ABS Lymphocytes 1.4 10^3/ul (1.0-4.8); ABS Monocytes 0.4 10^3/ul (0-0.8); ABS Neutrophils 3.9 10^3/ul (1.5-7.7); Eosinophil % 2.2 %; Hematocrit 48 % (35-47); Hemoglobin 14.6 g/dL (12.0-16.0); Lymphocyte % 24.5 %; Mean Corpuscular HGB Conc 31 g/dL (31-36); Mean Corpuscular Hemoglobin 26 pg (27-31); Mean Corpuscular Volume 86 fL (80-97); Mean Platelet Volume 10.7 fL (7.4-10.4); Nucleated Red Blood Cells % 0.1; Platelet Count 84 10^3/uL (150-450); Red Blood Count 5.54 10^6 /uL (3.70-4.87); Red Cell Distribution Width 17 % (10-15); White Blood Count 5.9 10^3/uL (3.5-10.8)
[2020-06-15] MEDS: D5W 1000 ml BAG 1,000 ML IV SCH (08:43)
[2020-06-15] MEDS: Linezolid 600 MG IVPREMIX(*) 600 MG/300 ML BAG IVPB SCH ×2 (09:20→21:10)
[2020-06-15 14:04] LABS: Calcium 9.3 mg/dL (8.6-10.3); Potassium 3.6 mmol/L (3.5-5.0)
[2020-06-15 14:10] LABS: BUN/Creatinine Ratio 34.8 (8-20); EGFR Non-African American 23.9 (>60)
[2020-06-16] MEDS: D5W 1000 ml BAG 1,000 ML IV SCH ×3 (00:20→16:46)
[2020-06-16] MEDS: Linezolid 600 MG IVPREMIX(*) 600 MG/300 ML BAG IVPB SCH ×2 (09:17→20:03)
[2020-06-17] MEDS: D5W 1000 ml BAG 1,000 ML IV SCH ×2 (05:30→17:47)
[2020-06-17] MEDS: Linezolid 600 MG IVPREMIX(*) 600 MG/300 ML BAG IVPB SCH ×2 (08:11→20:53)
[2020-06-17 21:51] VITALS: BP 121/64
[2020-06-18] MEDS: Linezolid 600 MG IVPREMIX(*) 600 MG/300 ML BAG IVPB SCH ×2 (08:13→23:14)
[2020-06-18] MEDS: D5W 1000 ml BAG 1,000 ML IV SCH (23:14)
[2020-06-19] MEDS: Linezolid 600 MG IVPREMIX(*) 600 MG/300 ML BAG IVPB SCH (08:59)
[2020-06-19] MEDS ORDERED: Morphine ORAL CONCENTRATE 5 MG/0.25 ML ORAL.SYRIN SL PRN (15:25)
[2020-06-19] MEDS ORDERED: Atropine 1% (ORAL/SL) 15 ML BTL SL PRN (15:27)
== END 2020-06-19 17:25 | DRG 682 ==
LOC: ED 16:23 → ICU 20:18 → MEDTELE 06-16 17:12
PROVIDERS: ADMIT Internal Medicine; ATTEND Internal Medicine